=== PATIENT | female | born 1950 | race Caucasian/White ===

== ENCOUNTER 2016-05-05 02:32 | Inpatient (IN) | payer MEDICAID, MEDICARE ==
[2016-05-05] VITALS (15 sets, daily range): BP systolic 92–162; BP diastolic 29–119
[~2016-05-05] VITALS: Ht 144.8 cm; Wt 55.5 kg
[2016-05-05] MEDS ORDERED: SODIUM BICARBONATE 8.4% 50 MEQ/50 ML VIAL IV ONE (02:45)
[2016-05-05] MEDS ORDERED: IV NORMAL SALINE 500 ML BAG IV ONE (02:45)
[2016-05-05] MEDS ORDERED: IV NORMAL SALINE 1000 ML BAG IV ONE (03:00)
[2016-05-05] MEDS ORDERED: OMEG500C PO (03:02)
[2016-05-05] MEDS ORDERED: MVI WITH MINERALS PO (03:08)
[2016-05-05] MEDS ORDERED: SODIUM CHLORIDE PO (03:10)
[2016-05-05] MEDS ORDERED: HPN PO (03:13)
[2016-05-05] MEDS ORDERED: CRAN450T9 PO (03:16)
[2016-05-05] MEDS ORDERED: DOCU-25 PO (03:18)
[2016-05-05] MEDS ORDERED: FOLI1TAB16 PO (03:19)
[2016-05-05] MEDS ORDERED: VIT C PO (03:20)
[2016-05-05] MEDS ORDERED: FERR-58 PO (03:22)
[2016-05-05] MEDS ORDERED: LISI-607 PO (03:23)
[2016-05-05 03:24] LABS: BASOPHILS % (AUTO) 0.3 % (0.0-2.0); EOSINOPHILS # (AUTO) 0.1 K/uL (0.0-0.7); HEMATOCRIT 30.5 % (37.0-47.0); HEMOGLOBIN 9.3 g/dL (12.0-16.0); LYMPHOCYTES # (AUTO) 1.2 K/uL (0.8-4.8); LYMPHOCYTES % (AUTO) 9.5 % (20.5-51.5); MEAN CORPUSCULAR HEMOGLOBIN 27.4 uug (27.0-31.0); MEAN CORPUSCULAR HGB CONC 30 g/dL (32.0-37.0); MONOCYTES # (AUTO) 0.5 K/uL (0.1-1.30); NEUTROPHILS # (AUTO) 10.7 K/uL (1.8-8.9); NEUTROPHILS % (AUTO) 85.2 % (38.5-71.5); PLATELET COUNT (AUTO) 587 K/uL (150-450); RED BLOOD CELL COUNT(AUTO) 3.38 MIL/uL (4.20-5.40); RED CELL DISTRIBUTION WIDTH 14.1 % (11.5-14.5); WHITE BLOOD COUNT (AUTO) 12.5 K/uL (4.0-11.2)
[2016-05-05] MEDS ORDERED: MONT10TA22 PO (03:24)
[2016-05-05] MEDS ORDERED: CYCL5TAB PO (03:25)
[2016-05-05] MEDS ORDERED: IMMODIUM PO (03:26)
[2016-05-05] MEDS ORDERED: DIPH25CA83 PO (03:28)
[2016-05-05 03:37] LABS: ALBUMIN 2.9 g/dL (3.4-5.0); BILIRUBIN,DIRECT 0.2 mg/dL (0.0-0.2); BILIRUBIN,TOTAL 0.5 mg/dL (0.2-1.0); CALCIUM 10.3 mg/dL (8.5-10.1); TOTAL PROTEIN, SERUM 8.9 g/dL (6.4-8.2)
[2016-05-05 03:50] LABS: CREATININE 4.2 mg/dL (0.6-1.3); POTASSIUM 7.7 mmol/L (3.5-5.1)
[2016-05-05] MEDS ORDERED: SODIUM BICARBONATE 8.4% 50 MEQ/50 ML DISP.SYRIN IV ONE (04:03)
[2016-05-05] MEDS ORDERED: ACET-2154 PO (04:15)
[2016-05-05] MEDS ORDERED: MAGN400O4 PO (04:17)
[2016-05-05] MEDS ORDERED: BISA10SU12 RC (04:19)
[2016-05-05] MEDS ORDERED: NA P133E RC (04:21)
[2016-05-05] MEDS ORDERED: HYDR-548 PO ×2 (04:23→04:24)
[2016-05-05] MEDS ORDERED: MIRT15TA PO (04:26)
[2016-05-05] MEDS ORDERED: BUSP15TA3 PO (04:26)
[2016-05-05] MEDS ORDERED: INSULIN REGULAR, HUMAN 1,000 UNITS/10 ML VIAL IV ONE (04:30)
[2016-05-05] MEDS ORDERED: DEXTROSE 50% 50 ML DISP.SYRIN IV ONE (04:30)
[2016-05-05] MEDS ORDERED: ZINC57OI4 TP (04:30)
--- NOTE | 2016-05-05 04:34 | NUR ---
XRAY IN THE ROOM
[2016-05-05] MEDS ORDERED: CALCIUM GLUCONATE IV 1 GM in IV DEXTROSE 5% 50 ML IV ONE (04:45)
--- NOTE | 2016-05-05 04:47 | NUR ---
DR MEDINA SPOKE WITH DR WALDO GARNER VASCULAR SURGERY. WILL SEE PATIENT TODAY
[2016-05-05] MEDS ORDERED: CALCIUM GLUCONATE 1 GM/10 ML VIAL IV ONE (04:53)
[2016-05-05] MEDS ORDERED: DEXTROSE 50% 50 ML DISP.SYRIN ONE (04:54)
[2016-05-05] MEDS ORDERED: INSULIN REGULAR, HUMAN 300 UNIT/3 ML VIAL ONE (04:56)
--- NOTE | 2016-05-05 06:00 | NUR ---
Received patient from ER. 2L NC, slight hypotension, sinus tach on cardiac/vascular sonographer. Confused.
--- NOTE | 2016-05-05 06:30 | NUR ---
Called to [facility] Nephrology, awaiting admitting doctor's return call; Dr Tolliver
[2016-05-05] MEDS ORDERED: SODIUM POLYSTYRENE SULFONATE 15 G/60 ML LIQUID UDC PO ONE ×2 (07:00→07:15)
--- NOTE | 2016-05-05 07:00 | NUR ---
Dr. Tolliver returned call. Admitting orders received. Will endorse to day shift nurse
[2016-05-05 07:29] LABS: ABG BASE EXCESS -10.3 mmol/L; ABG HCO3 13.5 mmol/L; ABG PCO2 23.1 mmHg (35.0-45.0); ABG PH 7.383 (7.350-7.450); ABG PO2 142.7 mmHg (75.0-100.0); ABG SITE RIGHT RADIAL; ABG TOTAL HEMOGLOBIN 8.6 G/dL (12.0-16.0); MetHb 0.4 % (0.0-1.5); O2Hb 98.1 % (94.0-97.0); VENT MODE Nasal Cannula
[2016-05-05] MEDS ORDERED: FLEET ENEMA 133 ML BOTTLE RC PRN (07:45)
[2016-05-05] MEDS ORDERED: ACETAMINOPHEN 325 MG TABLET PO PRN (07:45)
[2016-05-05] MEDS ORDERED: BISACODYL 10 MG SUPP.RECT RC PRN (07:45)
[2016-05-05] MEDS ORDERED: LOPERAMIDE HCL 2 MG CAPSULE PO PRN (07:45)
[2016-05-05] MEDS ORDERED: diphenhydrAMINE 25 MG CAP PO PRN (07:45)
[2016-05-05] MEDS ORDERED: MAGNESIUM HYDROXIDE 30 ML LIQUID UDC PO PRN (07:45)
--- NOTE | 2016-05-05 08:10 | NUR ---
Spoke with Dr. Hernandez and stated that it was okay for the pt to have a PICC line.
--- NOTE | 2016-05-05 08:16 | NUR ---
Spoke with Allen PICC line RN and stated that he'll come by later this morning for PICC line insertion for the pt. [employer] made aware.
--- NOTE | 2016-05-05 08:25 | NUR ---
Consent for PICC line insertion and blood transfusion signed by So (granddaughter): . Granddaughter alert and oriented during our telephone conversation and is aware of the procedures to be done.
[2016-05-05] MEDS ORDERED: FUROSEMIDE 40 MG/4 ML VIAL IV ONE (08:30)
[2016-05-05] MEDS ORDERED: CYCLOBENZAPRINE HCL 10 MG TABLET PO SCH (09:00)
[2016-05-05] MEDS ORDERED: SODIUM CHLORIDE 1,000 MG TABLET PO SCH (09:00)
[2016-05-05] MEDS ORDERED: CRANBERRY FRUIT PO SCH (09:00)
--- NOTE | 2016-05-05 09:00 | NUR ---
good catheter inserted and purulent bloody and foul smelling urine obtained and sent to lab, Dr. Hernandez informed.
[2016-05-05] MEDS: SODIUM BICARBONATE 8.4% 50 MEQ in IV 1/2NS 1000 ML 1,000 ML IV PRN ×2 (09:14→18:03)
[2016-05-05] MEDS: CEFTRIAXONE 1 G in IV DEXTROSE 5% 50 ML IV SCH (09:15)
--- NOTE | 2016-05-05 09:15 | NUR ---
Dr. Hernandez in the unit to see patient, full report given.
[2016-05-05] MEDS: FERROUS SULFATE 325 MG TABEC PO SCH (09:20)
[2016-05-05] MEDS: OMEGA-3 FATTY ACIDS/FISH OIL CAPSULE PO SCH (09:20)
[2016-05-05] MEDS: DOCUSATE SODIUM 100 MG CAPSULE PO SCH (09:20)
[2016-05-05] MEDS: ASCORBIC ACID 500 MG TABLET PO SCH (09:21)
[2016-05-05] MEDS: FOLIC ACID 1 MG TABLET PO SCH (09:21)
[2016-05-05] MEDS: PANTOPRAZOLE SODIUM 40 MG VIAL IV SCH ×2 (09:21→21:00)
[2016-05-05] MEDS: MULTIVIT, IRON, MIN NO. 8, FA TABLET PO SCH (09:21)
[2016-05-05] MEDS: busPIRone 5 MG TABLET PO SCH ×3 (09:24→17:00)
[2016-05-05 10:03] LABS: *BILIRUBIN,URIN NEGATIVE (NEGATIVE); *BLOOD, URINE 3+ (NEGATIVE); *CLARITY,URINE TURBID (CLEAR); *COLOR,URINE ORANGE (YELLOW); *KETONES,URINE TRACE (NEGATIVE); *UROBILINOGEN,URINE 0.2 E.U./dl (NORMAL); LEUKOCYTE ESTERASE ,URINE 3+ (NEGATIVE); NITRITE, URINE NEGATIVE (NEGATIVE); PH,URINE 5.5 (5.0-8.0); UGLUCOSE NEGATIVE (NEGATIVE)
[2016-05-05 10:05] LABS: *PROTEIN,URINE 3+ (NEGATIVE)
[2016-05-05 10:12] LABS: BACTERIA,URINE MA /HPF (NONE SEEN); SQUAMOUS EPITHELIAL CELL,UR NONE SEEN /HPF (NONE SEEN)
[2016-05-05 10:15] LABS: RBC,URINE 20-50 /HPF (0-3)
[2016-05-05 10:16] LABS: WBC,URINE TNTC /HPF (0-3)
[2016-05-05] MEDS ORDERED: LIDOCAINE HCL 1% 20 ML VIAL IJ ONE (11:00)
--- NOTE | 2016-05-05 11:07 | NUR ---
Picc line insertion in process.
--- NOTE | 2016-05-05 11:35 | NUR ---
Picc line procedure done at this time as ordered by Brandon Hermosillo PICC line ready to be used. Addendum: 05/05/16 at 1136 by MARK LÓPEZ RN 2 tgs dafne DUONG
[2016-05-05 13:16] LABS: BASOPHILS % (AUTO) 0.1 % (0.0-2.0); EOSINOPHILS # (AUTO) 0.1 K/uL (0.0-0.7); EOSINOPHILS % (AUTO) 0.6 % (0.0-7.0); HEMOGLOBIN 7.9 g/dL (12.0-16.0); LYMPHOCYTES # (AUTO) 0.6 K/uL (0.8-4.8); LYMPHOCYTES % (AUTO) 6.4 % (20.5-51.5); MEAN CORPUSCULAR HEMOGLOBIN 28.6 uug (27.0-31.0); MEAN CORPUSCULAR HGB CONC 32 g/dL (32.0-37.0); MEAN CORPUSCULAR VOLUME 90.6 fL (81.0-99.0); MONOCYTES # (AUTO) 0.3 K/uL (0.1-1.30); NEUTROPHILS # (AUTO) 8.1 K/uL (1.8-8.9); NEUTROPHILS % (AUTO) 89.9 % (38.5-71.5); PLATELET COUNT (AUTO) 549 K/uL (150-450); RED BLOOD CELL COUNT(AUTO) 2.76 MIL/uL (4.20-5.40); RED CELL DISTRIBUTION WIDTH 14.4 % (11.5-14.5); WHITE BLOOD COUNT (AUTO) 9.1 K/uL (4.0-11.2)
[2016-05-05 13:28] LABS: CREATININE 3.6 mg/dL (0.6-1.3); MAGNESIUM 2.4 mg/dL (1.8-2.4); PHOSPHOROUS 5.6 mg/dL (2.5-4.9); POTASSIUM 4.7 mmol/L (3.5-5.1)
[2016-05-05] MEDS: MONTELUKAST SODIUM 10 MG TABLET PO SCH ×2 (17:11→17:41)
--- NOTE | 2016-05-05 17:42 | NUR ---
patient spit out her 1700 and 1800 meds. medication already crashed.
--- NOTE | 2016-05-05 20:00 | NUR ---
RECEIVED PT. OPENS HIS EYES TO VERBAL STIMULI, FOLLOWS TO COMMAND.ON RM AIR W/ O2 SAT OF 99%. IVF I/2 NS @ 125CC/HR VIA PICC LINE ON JOHN. KRUSE CATH INTACT DRAINING TO CLOUDY PINKISH URINE. HAD LARGE LIQUIDISH GRAYISH STOOL, CLEANED PT & COMPLETE LINEN CHANGED. REPOSITIONED ON HER SIDE W/ HOB ELEVATED.
[2016-05-05] MEDS: MIRTAZAPINE 15 MG TABLET PO SCH (21:00)
--- NOTE | 2016-05-05 22:00 | NUR ---
HS CARE DONE. NO BM NOTED THIS TIME. REPOSITIONED ON HER OPPOSITE SIDE W/ HOB ELEVATED. PT. SPITTED OUT MED. GIVEN PO EARLIER.
[2016-05-06] VITALS (77 sets, daily range): BP systolic 66–158; BP diastolic 25–105
[2016-05-06] MEDS: SODIUM BICARBONATE 8.4% 50 MEQ in IV 1/2NS 1000 ML 1,000 ML IV PRN ×3 (02:29→21:42)
[2016-05-06] MEDS: HYDROCODONE/APAP 10-325 MG TABLET PO PRN ×2 (03:24→16:42)
--- NOTE | 2016-05-06 03:25 | NUR ---
MEDICATED W/ NORCO10/325 1 TAB BEFORE DRSG CHANGED ON HER SACRUM.
--- NOTE | 2016-05-06 04:15 | NUR ---
AM CARE DONE. REFUSED ORAL CARE. NO BM NOTED THIS TIME. REPOSITIONED ON HER SIDE W/ HOB ELEVATED.
[2016-05-06 04:58] LABS: EOSINOPHILS # (AUTO) 0.2 K/uL (0.0-0.7); MONOCYTES # (AUTO) 0.4 K/uL (0.1-1.30); WHITE BLOOD COUNT (AUTO) 7.9 K/uL (4.0-11.2)
[2016-05-06 04:59] LABS: BASOPHILS % (AUTO) 0.1 % (0.0-2.0); EOSINOPHILS % (AUTO) 2.5 % (0.0-7.0); HEMATOCRIT 22.2 % (37.0-47.0); LYMPHOCYTES # (AUTO) 0.8 K/uL (0.8-4.8); LYMPHOCYTES % (AUTO) 9.7 % (20.5-51.5); MEAN CORPUSCULAR HEMOGLOBIN 29.4 uug (27.0-31.0); MEAN CORPUSCULAR HGB CONC 33 g/dL (32.0-37.0); MEAN CORPUSCULAR VOLUME 88.9 fL (81.0-99.0); MONOCYTES % (AUTO) 4.6 % (0.0-11.0); NEUTROPHILS # (AUTO) 6.5 K/uL (1.8-8.9); NEUTROPHILS % (AUTO) 83.1 % (38.5-71.5); PLATELET COUNT (AUTO) 504 K/uL (150-450); RED CELL DISTRIBUTION WIDTH 14.7 % (11.5-14.5)
[2016-05-06 05:14] LABS: HEMOGLOBIN 7.3 g/dL (12.0-16.0)
[2016-05-06 05:19] LABS: BILIRUBIN,TOTAL 0.5 mg/dL (0.2-1.0); CALCIUM 8.2 mg/dL (8.5-10.1); MAGNESIUM 1.8 mg/dL (1.8-2.4); POTASSIUM 3.1 mmol/L (3.5-5.1); TOTAL PROTEIN, SERUM 6.6 g/dL (6.4-8.2)
[2016-05-06 05:26] LABS: CREATININE 2.6 mg/dL (0.6-1.3)
--- NOTE | 2016-05-06 07:30 | NUR ---
Dr. Kidd in the unit to see patient report given see orders.
[2016-05-06] MEDS: NOREPINEPHRINE BITARTRATE 16 MG in IV DEXTROSE 5% 500 ML IV PRN (07:34)
[2016-05-06] MEDS ORDERED: SODIUM CHLORIDE 1,000 MG TABLET PO SCH (09:00)
[2016-05-06] MEDS: MULTIVIT, IRON, MIN NO. 8, FA TABLET PO SCH (09:01)
[2016-05-06] MEDS: PANTOPRAZOLE SODIUM 40 MG VIAL IV SCH ×2 (09:01→21:09)
[2016-05-06] MEDS: ASCORBIC ACID 500 MG TABLET PO SCH (09:01)
[2016-05-06] MEDS: CEFTRIAXONE 1 G in IV DEXTROSE 5% 50 ML IV SCH (09:01)
[2016-05-06] MEDS: DOCUSATE SODIUM 100 MG CAPSULE PO SCH (09:01)
[2016-05-06] MEDS: OMEGA-3 FATTY ACIDS/FISH OIL CAPSULE PO SCH (09:01)
[2016-05-06] MEDS: FOLIC ACID 1 MG TABLET PO SCH (09:01)
[2016-05-06] MEDS: FERROUS SULFATE 325 MG TABEC PO SCH (09:01)
[2016-05-06] MEDS: busPIRone 5 MG TABLET PO SCH ×3 (09:02→17:00)
--- NOTE | 2016-05-06 13:47 | NUR ---
WOUND CARE CONSULT: PT PRESENTS WITH IMMOBILITY AND SACRAL STAGE III ULCER WITH LARGE AREA OF SCARRING EXTENDING TO BUTTOCKS, PRESENT ON ADMISSION. RECOMMENDATIONS MADE FOR WOUND CARE AND SKIN PROTECTION. PT ON FIRST STEP MATTRESS. RECOMMEND SURGICAL CONSULT. PT TO BE TURNED AND REPOSITIONED EVERY 2 HRS PT CONDITION PERMITS, HEELS FLOATED. DUSKY COLOR TO PLANTAR FEET AND HEELS WITH BLANCHING REDNESS. WILL SEE PRN. ZHANG IN AGREEMENT WITH PLAN OF CARE. Addendum: 05/06/16 at 1349 by AILYN HUBER RN Amended: Links added. Addendum: 05/06/16 at 1353 by AILYN HUBER RN PT IS CACHECTIC. DIETARY CONSULT ORDERED.
[2016-05-06] MEDS ORDERED: LEVOFLOXACIN 250MG /D5W 250 MG in PREMIXED 1 EACH IV SCH ×2 (14:15→15:00)
[2016-05-06] MEDS: PIPERACILLIN/TAZOBACTAM/D5W 2.25 G in PREMIXED 1 EACH IV SCH ×2 (15:00→22:23)
[2016-05-06] MEDS: LEVOFLOXACIN 250MG /D5W 250 MG in PREMIXED 1 EACH IV SCH (15:48)
--- NOTE | 2016-05-06 17:07 | NUR ---
patient screaming for pain medication, noted to be grimacing and restless. medication removed scanned and when crashed and mixed with apple sauce patient refusing and closing lip tightly. Patient extremely confused. medication wasted.
[2016-05-06] MEDS: MONTELUKAST SODIUM 10 MG TABLET PO SCH (17:11)
--- NOTE | 2016-05-06 20:00 | NUR ---
RECEIVED PT. AWAKE, CONFUSED & DISORIENTED. ON RM AIR W/ O2 SAT OF 99%. IVF1/2 NS W/ 1 AMP OF NA BICAB @ 125CC/HR VIA PICC LINE ON JOHN. ON LEVOPHED DRIP @ 10MCQ/MIN. REPOSITIONED ON HER SIDE W/ HOB ELEVATED. NOT IN ANY DISTRESS.
[2016-05-06] MEDS: MIRTAZAPINE 15 MG TABLET PO SCH (21:09)
--- NOTE | 2016-05-06 22:00 | NUR ---
HS CARE DONE REPOSITIONED W/ HOB ELEVATED.
[2016-05-07] VITALS (46 sets, daily range): BP systolic 103–155; BP diastolic 47–92
--- NOTE | 2016-05-07 | NUR ---
REMAINS ON LEVOPHED DRIP @ 8MCQ/MIN. AFEBRILE.
[2016-05-07] MEDS: HYDROCODONE/APAP 10-325 MG TABLET PO PRN ×2 (03:20→09:13)
--- NOTE | 2016-05-07 04:30 | NUR ---
AM CARE DONE .ORAL CARE DONE. NO BM NOTED. REPOSITIONED W/ HOB ELEVATED.
[2016-05-07 05:15] LABS: ALBUMIN 1.9 g/dL (3.4-5.0); BILIRUBIN,TOTAL 1.2 mg/dL (0.2-1.0); CALCIUM 7.8 mg/dL (8.5-10.1); MAGNESIUM 1.5 mg/dL (1.8-2.4); PHOSPHOROUS 3.4 mg/dL (2.5-4.9); TOTAL PROTEIN, SERUM 6.4 g/dL (6.4-8.2)
[2016-05-07 05:18] LABS: BASOPHILS % (AUTO) 0.2 % (0.0-2.0); EOSINOPHILS % (AUTO) 0.2 % (0.0-7.0); HEMATOCRIT 35.3 % (37.0-47.0); LYMPHOCYTES # (AUTO) 1.3 K/uL (0.8-4.8); LYMPHOCYTES % (AUTO) 8.4 % (20.5-51.5); MEAN CORPUSCULAR HGB CONC 33 g/dL (32.0-37.0); MEAN CORPUSCULAR VOLUME 86.9 fL (81.0-99.0); MONOCYTES # (AUTO) 0.7 K/uL (0.1-1.30); MONOCYTES % (AUTO) 4.9 % (0.0-11.0); NEUTROPHILS # (AUTO) 13.2 K/uL (1.8-8.9); NEUTROPHILS % (AUTO) 86.3 % (38.5-71.5); PLATELET COUNT (AUTO) 415 K/uL (150-450); RED BLOOD CELL COUNT(AUTO) 4.06 MIL/uL (4.20-5.40); RED CELL DISTRIBUTION WIDTH 16.4 % (11.5-14.5); WHITE BLOOD COUNT (AUTO) 15.2 K/uL (4.0-11.2)
[2016-05-07 05:22] LABS: HEMOGLOBIN 11.8 g/dL (12.0-16.0)
[2016-05-07 05:33] LABS: CREATININE 1.9 mg/dL (0.6-1.3); POTASSIUM 2.6 mmol/L (3.5-5.1)
--- NOTE | 2016-05-07 06:00 | NUR ---
DR GIBBS CALLED FOR K+LEVEL-2.6 W/ ORDER.
[2016-05-07] MEDS: PIPERACILLIN/TAZOBACTAM/D5W 2.25 G in PREMIXED 1 EACH IV SCH ×3 (06:04→23:04)
[2016-05-07] MEDS ORDERED: POTASSIUM CHLORIDE 100 ML IV SCH (06:15)
[2016-05-07] MEDS ORDERED: POTASSIUM CHLORIDE 50 ML ONE (06:24)
[2016-05-07] MEDS: POTASSIUM CHLORIDE 50 ML IV SCH ×3 (07:15→09:05)
[2016-05-07] MEDS: SODIUM BICARBONATE 8.4% 50 MEQ in IV 1/2NS 1000 ML 1,000 ML IV PRN (07:39)
[2016-05-07] MEDS: NOREPINEPHRINE BITARTRATE 16 MG in IV DEXTROSE 5% 500 ML IV PRN (07:41)
[2016-05-07] MEDS: MULTIVIT, IRON, MIN NO. 8, FA TABLET PO SCH (08:07)
[2016-05-07] MEDS: PANTOPRAZOLE SODIUM 40 MG VIAL IV SCH ×2 (08:07→20:52)
[2016-05-07] MEDS: FERROUS SULFATE 325 MG TABEC PO SCH (08:07)
[2016-05-07] MEDS: OMEGA-3 FATTY ACIDS/FISH OIL CAPSULE PO SCH (08:08)
[2016-05-07] MEDS: busPIRone 5 MG TABLET PO SCH ×2 (08:08→17:00)
[2016-05-07] MEDS: FOLIC ACID 1 MG TABLET PO SCH (08:08)
[2016-05-07] MEDS: ASCORBIC ACID 500 MG TABLET PO SCH (08:08)
[2016-05-07] MEDS: DOCUSATE SODIUM 100 MG CAPSULE PO SCH (08:08)
--- NOTE | 2016-05-07 09:05 | NUR ---
DOCTOR AGUILERA IN UNIT EVALUATING PATIENTS. ORDERS PLACED AND EXPEDITED.
[2016-05-07] MEDS ORDERED: MAGNESIUM SULFATE/D5W 100 ML IV SCH (09:15)
[2016-05-07] MEDS: POTASSIUM CHLORIDE 10 MEQ in IV 1/2NS 1000 ML 1,000 ML IV PRN (09:26)
--- NOTE | 2016-05-07 11:30 | NUR ---
dr. davenport CT SCAN SPECIAL PROCEDURES TECHNOLOGIST came to see patient. new ordered place for mrsa nares
[2016-05-07] MEDS: MUPIROCIN 2% OINT 22 GM TUBE NS SCH ×2 (13:22→20:53)
--- NOTE | 2016-05-07 14:10 | NUR ---
patient does not want to take any po intake. unable to insert NGT.
--- NOTE | 2016-05-07 16:00 | NUR ---
patient taken to CT scan for abdomen and pelvis no contrast.
--- NOTE | 2016-05-07 16:35 | NUR ---
spoke to doctor shtorch regarding patient refusing to eat or take meds for several days. doctor to consult GI for possible peg. attempted ngt unable to place.
[2016-05-07] MEDS: MONTELUKAST SODIUM 10 MG TABLET PO SCH (18:00)
--- NOTE | 2016-05-07 20:00 | NUR ---
RECEIVED PT.AWAKE, VERBALLY RESPONSIVE BUT CONFUSED & DISORIENTED. ON RM AIR W/ O2 SAT OF 98%. IVF 1/2NS W/ 10MEQ KCL @ 75CC/HR VIA PICC LINE ON JOHN. KRUSE CATH IN PLACE DRAINING TO CLOUDY ANGY URINE. AFEBRILE. REPOSITIONED ON HER SIDE W/ HOB ELEVATED.
[2016-05-07] MEDS: LACTOBACILLUS RHAMNOSUS GG 1 EACH CAPSULE PO SCH (20:52)
[2016-05-07] MEDS: MIRTAZAPINE 15 MG TABLET PO SCH (20:53)
--- NOTE | 2016-05-07 22:00 | NUR ---
HS CARE DONE. ORAL CARE DONE. REPOSITIONED ON HER SIDE W/ HOB ELEVATED. BP STABLE.
[2016-05-08] VITALS (23 sets, daily range): BP systolic 94–155; BP diastolic 40–95
--- NOTE | 2016-05-08 | NUR ---
AFEBRILE. BP STABLE. NOT IN ANY DISTRESS.
[2016-05-08] MEDS: POTASSIUM CHLORIDE 10 MEQ in IV 1/2NS 1000 ML 1,000 ML IV PRN ×2 (00:42→20:12)
--- NOTE | 2016-05-08 04:30 | NUR ---
AM CARE DONE. ORAL CARE DONE. NO BM NOTED. REPOSITIONED ON HER SIDE W/ HOB ELEVATED.
--- NOTE | 2016-05-08 05:00 | NUR ---
CLEANED SACRUM OPEN AREAS , HYDROGEL OINTMENT APPLIED & COVERED W/ MEPILEX DRSG. Z-GUARD CREAM APPLIED TO PERIANAL AREA.
[2016-05-08] MEDS: HYDROCODONE/APAP 10-325 MG TABLET PO PRN (05:33)
[2016-05-08] MEDS: PIPERACILLIN/TAZOBACTAM/D5W 2.25 G in PREMIXED 1 EACH IV SCH (05:33)
[2016-05-08 05:56] LABS: BASOPHILS % (AUTO) 0.1 % (0.0-2.0); EOSINOPHILS # (AUTO) 0.1 K/uL (0.0-0.7); EOSINOPHILS % (AUTO) 0.5 % (0.0-7.0); HEMATOCRIT 34.8 % (37.0-47.0); HEMOGLOBIN 11.7 g/dL (12.0-16.0); LYMPHOCYTES # (AUTO) 1.6 K/uL (0.8-4.8); LYMPHOCYTES % (AUTO) 12.6 % (20.5-51.5); MEAN CORPUSCULAR HEMOGLOBIN 29.6 uug (27.0-31.0); MEAN CORPUSCULAR HGB CONC 34 g/dL (32.0-37.0); MEAN CORPUSCULAR VOLUME 88.2 fL (81.0-99.0); MONOCYTES # (AUTO) 0.9 K/uL (0.1-1.30); MONOCYTES % (AUTO) 7.4 % (0.0-11.0); NEUTROPHILS % (AUTO) 79.4 % (38.5-71.5); PLATELET COUNT (AUTO) 299 K/uL (150-450); RED BLOOD CELL COUNT(AUTO) 3.95 MIL/uL (4.20-5.40); RED CELL DISTRIBUTION WIDTH 17.1 % (11.5-14.5); WHITE BLOOD COUNT (AUTO) 12.6 K/uL (4.0-11.2)
--- NOTE | 2016-05-08 06:00 | NUR ---
AWAKE & CONFUSED. REPOSITIONED ON HER SIDE W/ HOB ELEVATED.
[2016-05-08] MEDS ORDERED: POTASSIUM CHLORIDE 50 ML IV SCH ×2 (07:15→07:45)
[2016-05-08 07:18] LABS: BILIRUBIN,TOTAL 0.7 mg/dL (0.2-1.0); CALCIUM 8.4 mg/dL (8.5-10.1); CREATININE 1.6 mg/dL (0.6-1.3); MAGNESIUM 1.9 mg/dL (1.8-2.4); PHOSPHOROUS 3.2 mg/dL (2.5-4.9); POTASSIUM 3.4 mmol/L (3.5-5.1); TOTAL PROTEIN, SERUM 6.5 g/dL (6.4-8.2)
--- NOTE | 2016-05-08 08:00 | NUR ---
DOCTOR SHTORCH IN THE UNIT ROUNDING ON PATIENT. RESULTS FROM CT WERE READ. ORDERED HIDA SCAN FOR PATIENT.
[2016-05-08] MEDS: busPIRone 5 MG TABLET PO SCH ×2 (08:14→16:53)
[2016-05-08] MEDS: PANTOPRAZOLE SODIUM 40 MG VIAL IV SCH ×2 (08:14→21:21)
[2016-05-08] MEDS: MUPIROCIN 2% OINT 22 GM TUBE NS SCH ×2 (08:15→21:21)
[2016-05-08] MEDS: MULTIVIT, IRON, MIN NO. 8, FA TABLET PO SCH (09:00)
[2016-05-08] MEDS: ASCORBIC ACID 500 MG TABLET PO SCH (09:00)
[2016-05-08] MEDS: DOCUSATE SODIUM 100 MG CAPSULE PO SCH (09:00)
[2016-05-08] MEDS: LACTOBACILLUS RHAMNOSUS GG 1 EACH CAPSULE PO SCH ×2 (09:00→21:20)
[2016-05-08] MEDS: OMEGA-3 FATTY ACIDS/FISH OIL CAPSULE PO SCH (09:00)
[2016-05-08] MEDS: FERROUS SULFATE 325 MG TABEC PO SCH (09:00)
[2016-05-08] MEDS: FOLIC ACID 1 MG TABLET PO SCH (09:00)
--- NOTE | 2016-05-08 09:45 | NUR ---
DOCTOR EVELIO IN UNIT ROUNDING ON PATIENT. CHANGED ANTIBIOTICS.
--- NOTE | 2016-05-08 11:07 | NUR ---
PATIENT TAKEN TO HIDA SCAN. CONSENT SIGNED. PATIENT MONITORED WITH RESOURCE NURSE.
--- NOTE | 2016-05-08 12:34 | NUR ---
CALLED DOCTOR DUTTA WHO IS ONCALL. FOR PRN PAIN MEDICATION IV. PATIENT NOT TOLERATING PO AND IS NPO FOR PROCEDURE
[2016-05-08] MEDS: HYDROMORPHONE 1 MG/1 ML DISP.SYRIN IV PRN ×2 (14:46→21:22)
[2016-05-08] MEDS: LEVOFLOXACIN 250MG /D5W 250 MG in PREMIXED 1 EACH IV SCH (16:53)
[2016-05-08] MEDS: MONTELUKAST SODIUM 10 MG TABLET PO SCH (18:00)
--- NOTE | 2016-05-08 20:00 | NUR ---
Alert, confused. Safety measures observed. In no apparent acute distress. Remains off vasopressor and is hemodynamically stable. Resp easy and regular. Excellent sats on room air. IVF infusing via PICC RUE. Vazquez cloudy urine, adequate amount. Nursing comfort measures maintained at all times. Please see CCU flowsheet for trends and clinical data. On contact isolation for MRSA nares.
[2016-05-08] MEDS: Z GUARD REMEDY PASTE 57 GM TUBE TOP PRN (20:13)
[2016-05-08] MEDS: MIRTAZAPINE 15 MG TABLET PO SCH (21:21)
[2016-05-09] VITALS (11 sets, daily range): BP systolic 103–140; BP diastolic 60–97
[2016-05-09 05:13] LABS: BASOPHILS % (AUTO) 0.2 % (0.0-2.0); EOSINOPHILS # (AUTO) 0.2 K/uL (0.0-0.7); EOSINOPHILS % (AUTO) 1.4 % (0.0-7.0); HEMATOCRIT 32.9 % (37.0-47.0); HEMOGLOBIN 10.9 g/dL (12.0-16.0); LYMPHOCYTES # (AUTO) 1.7 K/uL (0.8-4.8); LYMPHOCYTES % (AUTO) 14.8 % (20.5-51.5); MEAN CORPUSCULAR HEMOGLOBIN 29.3 uug (27.0-31.0); MEAN CORPUSCULAR HGB CONC 33 g/dL (32.0-37.0); MEAN CORPUSCULAR VOLUME 88.7 fL (81.0-99.0); MONOCYTES # (AUTO) 0.9 K/uL (0.1-1.30); MONOCYTES % (AUTO) 7.4 % (0.0-11.0); NEUTROPHILS # (AUTO) 8.7 K/uL (1.8-8.9); NEUTROPHILS % (AUTO) 76.2 % (38.5-71.5); PLATELET COUNT (AUTO) 261 K/uL (150-450); RED BLOOD CELL COUNT(AUTO) 3.71 MIL/uL (4.20-5.40); RED CELL DISTRIBUTION WIDTH 17.3 % (11.5-14.5); WHITE BLOOD COUNT (AUTO) 11.5 K/uL (4.0-11.2)
[2016-05-09 05:18] LABS: BILIRUBIN,TOTAL 0.6 mg/dL (0.2-1.0); CALCIUM 8.7 mg/dL (8.5-10.1); MAGNESIUM 1.6 mg/dL (1.8-2.4); PHOSPHOROUS 2.6 mg/dL (2.5-4.9); POTASSIUM 3.3 mmol/L (3.5-5.1); TOTAL PROTEIN, SERUM 6.1 g/dL (6.4-8.2)
[2016-05-09] MEDS: HYDROMORPHONE 1 MG/1 ML DISP.SYRIN IV PRN (05:25)
[2016-05-09] MEDS: Z GUARD REMEDY PASTE 57 GM TUBE TOP PRN (05:25)
[2016-05-09 05:52] LABS: CREATININE 1.4 mg/dL (0.6-1.3)
--- NOTE | 2016-05-09 06:00 | NUR ---
Pt sensitive to tactile stimuli, is guarded and appears in pain with turning/positioning. Medicated twice this shift with IV Dilaudid, with adequate relief. HR up as high as 130's with pain/discomfort. Fairly tolerated AM care procedures. Stable night. Please see CCU flowsheet for trends and clinical data.
[2016-05-09] MEDS: PANTOPRAZOLE SODIUM 40 MG VIAL IV SCH ×2 (08:31→20:48)
[2016-05-09] MEDS: MUPIROCIN 2% OINT 22 GM TUBE NS SCH ×2 (08:32→20:48)
[2016-05-09] MEDS: LACTOBACILLUS RHAMNOSUS GG 1 EACH CAPSULE PO SCH ×2 (08:37→20:48)
[2016-05-09] MEDS: OMEGA-3 FATTY ACIDS/FISH OIL CAPSULE PO SCH (08:37)
[2016-05-09] MEDS: FERROUS SULFATE 325 MG TABEC PO SCH (08:37)
[2016-05-09] MEDS: FOLIC ACID 1 MG TABLET PO SCH (08:38)
[2016-05-09] MEDS: ASCORBIC ACID 500 MG TABLET PO SCH (08:38)
[2016-05-09] MEDS: MULTIVIT, IRON, MIN NO. 8, FA TABLET PO SCH (08:38)
[2016-05-09] MEDS: busPIRone 5 MG TABLET PO SCH ×2 (08:39→17:00)
[2016-05-09] MEDS: DOCUSATE SODIUM 100 MG CAPSULE PO SCH (09:00)
[2016-05-09] MEDS: POTASSIUM CHLORIDE 10 MEQ in IV 1/2NS 1000 ML 1,000 ML IV PRN (09:09)
--- NOTE | 2016-05-09 10:12 | NUR ---
Dr. Hernandez here to see pt. Full report given. New orders received and carried out. stated that it was okay to downgrade pt to medsurg status. Addendum: 05/09/16 at 1133 by JOSUE ECHEVERRIA RN Pt remain NPO for now until GI/surgeon consults pt for acute cholecystitis.
[2016-05-09] MEDS ORDERED: MAGNESIUM SULFATE/D5W 100 ML IV SCH (10:15)
[2016-05-09] MEDS: POTASSIUM CHLORIDE 50 ML IV SCH ×2 (11:33→12:43)
[2016-05-09] MEDS: MONTELUKAST SODIUM 10 MG TABLET PO SCH (17:19)
--- NOTE | 2016-05-09 19:18 | NUR ---
Pt brought up to the 2nd floor with certified retinal angiographer RN and respiratory therapist. All belongings reviewed and returned to the pt. Pt stable and nad noted upon leaving the unit.
--- NOTE | 2016-05-09 19:30 | NUR ---
pt transferred from CCU,A/OX1 with confusion noted, not in acute distress, with good cath intact, PICC line on Right UA, calllight placed within reach.
--- NOTE | 2016-05-09 19:45 | NUR ---
Full SBAR report given to BETH Sandoval at the bedside.
[2016-05-09] MEDS: MIRTAZAPINE 15 MG TABLET PO SCH (20:48)
[2016-05-09] MEDS: LEVOFLOXACIN 250MG /D5W 250 MG in PREMIXED 1 EACH IV SCH (20:49)
[2016-05-10] MEDS: POTASSIUM CHLORIDE 10 MEQ in IV 1/2NS 1000 ML 1,000 ML IV PRN ×2 (03:44→19:41)
[2016-05-10 04:00] VITALS: BP 134/56
--- NOTE | 2016-05-10 06:35 | NUR ---
pt no change in condition, not in acute distress, IVF infusing well, kept comfortable,needs attended.
[2016-05-10 07:07] LABS: ALBUMIN 1.9 g/dL (3.4-5.0); BILIRUBIN,TOTAL 0.6 mg/dL (0.2-1.0); CALCIUM 8.8 mg/dL (8.5-10.1); CREATININE 1.2 mg/dL (0.6-1.3); MAGNESIUM 1.7 mg/dL (1.8-2.4); PHOSPHOROUS 2.6 mg/dL (2.5-4.9); POTASSIUM 3.8 mmol/L (3.5-5.1); TOTAL PROTEIN, SERUM 6.1 g/dL (6.4-8.2)
[2016-05-10 07:59] LABS: BASOPHILS % (AUTO) 0.3 % (0.0-2.0); EOSINOPHILS # (AUTO) 0.2 K/uL (0.0-0.7); EOSINOPHILS % (AUTO) 1.7 % (0.0-7.0); HEMATOCRIT 31.1 % (37.0-47.0); HEMOGLOBIN 10.3 g/dL (12.0-16.0); LYMPHOCYTES # (AUTO) 1.7 K/uL (0.8-4.8); LYMPHOCYTES % (AUTO) 15.8 % (20.5-51.5); MEAN CORPUSCULAR HEMOGLOBIN 29.3 uug (27.0-31.0); MEAN CORPUSCULAR HGB CONC 33 g/dL (32.0-37.0); MEAN CORPUSCULAR VOLUME 88.3 fL (81.0-99.0); MONOCYTES # (AUTO) 0.8 K/uL (0.1-1.30); NEUTROPHILS # (AUTO) 8.3 K/uL (1.8-8.9); NEUTROPHILS % (AUTO) 75.2 % (38.5-71.5); PLATELET COUNT (AUTO) 235 K/uL (150-450); RED BLOOD CELL COUNT(AUTO) 3.52 MIL/uL (4.20-5.40); RED CELL DISTRIBUTION WIDTH 16.4 % (11.5-14.5)
[2016-05-10] MEDS: OMEGA-3 FATTY ACIDS/FISH OIL CAPSULE PO SCH (08:02)
[2016-05-10] MEDS: DOCUSATE SODIUM 100 MG CAPSULE PO SCH (08:02)
[2016-05-10] MEDS: MULTIVIT, IRON, MIN NO. 8, FA TABLET PO SCH (08:03)
[2016-05-10] MEDS: FERROUS SULFATE 325 MG TABEC PO SCH (08:03)
[2016-05-10] MEDS: busPIRone 5 MG TABLET PO SCH ×2 (08:03→16:15)
[2016-05-10] MEDS: MUPIROCIN 2% OINT 22 GM TUBE NS SCH ×2 (08:03→20:44)
[2016-05-10] MEDS: FOLIC ACID 1 MG TABLET PO SCH (08:03)
[2016-05-10] MEDS: ASCORBIC ACID 500 MG TABLET PO SCH (08:03)
[2016-05-10] MEDS: LACTOBACILLUS RHAMNOSUS GG 1 EACH CAPSULE PO SCH ×2 (08:03→20:40)
[2016-05-10] MEDS: PANTOPRAZOLE SODIUM 40 MG VIAL IV SCH (08:04)
[2016-05-10 11:42] VITALS: BP 98/66
[2016-05-10] MEDS ORDERED: MAGNESIUM SULFATE/D5W 100 ML IV SCH (11:45)
[2016-05-10 15:25] VITALS: BP 108/67
[2016-05-10] MEDS: MONTELUKAST SODIUM 10 MG TABLET PO SCH (17:01)
[2016-05-10 20:00] VITALS: BP 124/61
[2016-05-10] MEDS: LEVOFLOXACIN 250MG /D5W 250 MG in PREMIXED 1 EACH IV SCH (20:40)
[2016-05-10] MEDS: MIRTAZAPINE 15 MG TABLET PO SCH (20:40)
[2016-05-10] MEDS: PANTOPRAZOLE ORAL SUSPENSION 40 MG SUSPDR.PKT PO SCH (20:40)
[2016-05-11 05:07] VITALS: BP 112/59
--- NOTE | 2016-05-11 06:14 | NUR ---
PT IN BED, A/O X2 WITH CONFUSION. IN NO ACUTE DISTRESS. IVF INFUSING ORDERED. TURNED AND REPOSITIONED. KRUSE INTACT. SAFETY MEASURES RENDERED. CONTINUED TO MONITOR.
[2016-05-11 06:56] LABS: ALBUMIN 1.6 g/dL (3.4-5.0); BILIRUBIN,TOTAL 0.5 mg/dL (0.2-1.0); CALCIUM 7.3 mg/dL (8.5-10.1); CREATININE 0.9 mg/dL (0.6-1.3); MAGNESIUM 1.4 mg/dL (1.8-2.4); PHOSPHOROUS 2.4 mg/dL (2.5-4.9); POTASSIUM 4.8 mmol/L (3.5-5.1); TOTAL PROTEIN, SERUM 5.2 g/dL (6.4-8.2)
[2016-05-11] MEDS ORDERED: PANTOPRAZOLE ORAL SUSPENSION 40 MG SUSPDR.PKT PO SCH (07:00)
[2016-05-11 07:24] LABS: BASOPHILS % (AUTO) 0.1 % (0.0-2.0); EOSINOPHILS # (AUTO) 0.1 K/uL (0.0-0.7); EOSINOPHILS % (AUTO) 1.4 % (0.0-7.0); HEMOGLOBIN 10.2 g/dL (12.0-16.0); LYMPHOCYTES # (AUTO) 1.3 K/uL (0.8-4.8); LYMPHOCYTES % (AUTO) 13.3 % (20.5-51.5); MEAN CORPUSCULAR HEMOGLOBIN 29.9 uug (27.0-31.0); MEAN CORPUSCULAR HGB CONC 33 g/dL (32.0-37.0); MEAN CORPUSCULAR VOLUME 90.7 fL (81.0-99.0); MONOCYTES # (AUTO) 0.6 K/uL (0.1-1.30); MONOCYTES % (AUTO) 6.4 % (0.0-11.0); NEUTROPHILS # (AUTO) 7.6 K/uL (1.8-8.9); NEUTROPHILS % (AUTO) 78.8 % (38.5-71.5); PLATELET COUNT (AUTO) 210 K/uL (150-450); RED BLOOD CELL COUNT(AUTO) 3.42 MIL/uL (4.20-5.40); RED CELL DISTRIBUTION WIDTH 17.5 % (11.5-14.5); WHITE BLOOD COUNT (AUTO) 9.6 K/uL (4.0-11.2)
--- NOTE | 2016-05-11 08:16 | NUR ---
PATIENT IS ALERT TO SELF WITH CONFUSSION AND DISORIENTATION ALL NEEDS ANTICIPATED AND SATISFIED.TOTALLY DEPENDENT ON NURSES FOR ALL ADL REMAIN NPO ORDERED WITH IVF ORDERED MADE COMFORTABLE NOT IN DISTRESS AT THIS TIME.
[2016-05-11] MEDS: MUPIROCIN 2% OINT 22 GM TUBE NS SCH ×2 (08:49→21:00)
[2016-05-11] MEDS: POTASSIUM CHLORIDE 10 MEQ in IV 1/2NS 1000 ML 1,000 ML IV PRN ×2 (08:51→22:44)
[2016-05-11] MEDS: FOLIC ACID 1 MG TABLET PO SCH (09:00)
[2016-05-11] MEDS: MULTIVIT, IRON, MIN NO. 8, FA TABLET PO SCH (09:00)
[2016-05-11] MEDS: ASCORBIC ACID 500 MG TABLET PO SCH (09:00)
[2016-05-11] MEDS: PANTOPRAZOLE ORAL SUSPENSION 40 MG SUSPDR.PKT PO SCH ×2 (09:00→22:37)
[2016-05-11] MEDS: busPIRone 5 MG TABLET PO SCH ×2 (09:00→17:00)
[2016-05-11] MEDS: FERROUS SULFATE 325 MG TABEC PO SCH (09:00)
[2016-05-11] MEDS: OMEGA-3 FATTY ACIDS/FISH OIL CAPSULE PO SCH (09:00)
[2016-05-11] MEDS: DOCUSATE SODIUM 100 MG CAPSULE PO SCH (09:00)
[2016-05-11] MEDS: LACTOBACILLUS RHAMNOSUS GG 1 EACH CAPSULE PO SCH ×2 (09:00→22:32)
[2016-05-11 10:46] LABS: ANISOCYTOSIS 1+
[2016-05-11 11:53] VITALS: BP 94/64
[2016-05-11] MEDS ORDERED: MAGNESIUM SULFATE/D5W 100 ML IV SCH (12:15)
[2016-05-11] MEDS ORDERED: SODIUM PHOSPHATE MM 5 MM in IV DEXTROSE 5% 100 ML IV ONE (12:15)
--- NOTE | 2016-05-11 12:50 | NUR ---
DR BARNES HERE TO SEE PATIENT WITH NEW ORDERS MD AWARE THAT PATIENT IS ON NPO EXCEPT MEDICATIONS BUT IS REFUSING MEDICATIONS STATED OKAY.DR ELLER INFECTIOUS DISEASE ALSO HERE WITH NO NEW ORDERS AT THIS TIME
[2016-05-11 15:27] VITALS: BP 132/73
[2016-05-11] MEDS: MONTELUKAST SODIUM 10 MG TABLET PO SCH (17:09)
--- NOTE | 2016-05-11 17:10 | NUR ---
ALL EFFORTS TO GIVE PATIENT MEDICATIONS FAILED WILL REFUSE TO OPEN MOUTH AND EVEN AFTER I MANAGED TO PUT THE MEDICATION INOT HER MOUTH,SHE SPIT IT OUT.
--- NOTE | 2016-05-11 19:02 | NUR ---
RESTING IN BED ALERT TO SELF ANSWERS YES ONLY UNABLE TO CARRY ON ANY CONVERATIONS AT THIS TIME.
[2016-05-11 20:00] VITALS: BP 136/69
[2016-05-11] MEDS ORDERED: D5W 500 MG IV SCH (21:00)
[2016-05-11] MEDS ORDERED: PREMIXED IV SCH (21:00)
[2016-05-11] MEDS ORDERED: LEVOFLOXACIN 500 MG/D5W 500 MG in PREMIXED 1 EACH IV SCH (21:00)
[2016-05-11] MEDS ORDERED: LEVOFLOXACIN IV SCH (21:00)
[2016-05-11] MEDS: MIRTAZAPINE 15 MG TABLET PO SCH (22:37)
[2016-05-11] MEDS: Z GUARD REMEDY PASTE 57 GM TUBE TOP PRN (22:46)
[2016-05-11] MEDS ORDERED: LEVOFLOXACIN 500 MG/D5W 100 ML ONE (23:03)
[2016-05-12] MEDS: POTASSIUM CHLORIDE 10 MEQ in IV 1/2NS 1000 ML 1,000 ML IV PRN ×2 (04:02→10:13)
[2016-05-12 05:13] VITALS: BP 116/76
--- NOTE | 2016-05-12 07:02 | NUR ---
pt no change in condition, managed to give meds with apple sauce,pt is confused. Pt not in acute distress, IVF infusing well, kept comfortable,needs attended.
--- NOTE | 2016-05-12 08:05 | NUR ---
RECEIVED PATIENT IN BED AWAKE ALERT TO SELF ONLY MUMBLING TO SELF INCOHERENTLY,ALL NEEDS ANTICIPATED AND SATISFIED ON FIRST STEP MATTRASS FOR DECUBITUS MANAGEMENT WITH TREATMENT IN PROGRESS ORDERED PATIENT IS SEEN AND EXAMINED BY DR BARNES WITH NEW ORDERS AND NOTED
--- NOTE | 2016-05-12 09:00 | NUR ---
I WAS ABLE TO GIVE PATIENT HER MEDICATIONS BUT SHE IS REFUSING TO EAT DRANK SOME OF HER JUICE AT THIS TIME AND WILL OBSERVE
[2016-05-12] MEDS: FERROUS SULFATE 325 MG TABEC PO SCH (09:02)
[2016-05-12] MEDS: DOCUSATE SODIUM 100 MG CAPSULE PO SCH (09:02)
[2016-05-12] MEDS: busPIRone 5 MG TABLET PO SCH ×2 (09:03→17:09)
[2016-05-12] MEDS: LACTOBACILLUS RHAMNOSUS GG 1 EACH CAPSULE PO SCH ×2 (09:03→20:11)
[2016-05-12] MEDS: OMEGA-3 FATTY ACIDS/FISH OIL CAPSULE PO SCH (09:03)
[2016-05-12] MEDS: MULTIVIT, IRON, MIN NO. 8, FA TABLET PO SCH (09:04)
[2016-05-12] MEDS: PANTOPRAZOLE ORAL SUSPENSION 40 MG SUSPDR.PKT PO SCH ×2 (09:04→20:12)
[2016-05-12] MEDS: FOLIC ACID 1 MG TABLET PO SCH (09:04)
[2016-05-12] MEDS: ASCORBIC ACID 500 MG TABLET PO SCH (09:04)
[2016-05-12] MEDS: MUPIROCIN 2% OINT 22 GM TUBE NS SCH ×2 (09:32→20:12)
[2016-05-12 10:13] LABS: ALBUMIN 1.8 g/dL (3.4-5.0); BILIRUBIN,TOTAL 0.5 mg/dL (0.2-1.0); CALCIUM 8.4 mg/dL (8.5-10.1); MAGNESIUM 1.6 mg/dL (1.8-2.4); PHOSPHOROUS 2.8 mg/dL (2.5-4.9); POTASSIUM 3.6 mmol/L (3.5-5.1); TOTAL PROTEIN, SERUM 5.9 g/dL (6.4-8.2)
[2016-05-12 10:46] LABS: BASOPHILS % (AUTO) 0.2 % (0.0-2.0); EOSINOPHILS # (AUTO) 0.2 K/uL (0.0-0.7); EOSINOPHILS % (AUTO) 1.3 % (0.0-7.0); HEMATOCRIT 35.9 % (37.0-47.0); HEMOGLOBIN 11.5 g/dL (12.0-16.0); LYMPHOCYTES # (AUTO) 1.6 K/uL (0.8-4.8); LYMPHOCYTES % (AUTO) 13.4 % (20.5-51.5); MEAN CORPUSCULAR HEMOGLOBIN 28.9 uug (27.0-31.0); MEAN CORPUSCULAR HGB CONC 32 g/dL (32.0-37.0); MEAN CORPUSCULAR VOLUME 90.3 fL (81.0-99.0); MONOCYTES # (AUTO) 0.8 K/uL (0.1-1.30); MONOCYTES % (AUTO) 6.6 % (0.0-11.0); NEUTROPHILS # (AUTO) 9.4 K/uL (1.8-8.9); NEUTROPHILS % (AUTO) 78.5 % (38.5-71.5); PLATELET COUNT (AUTO) 211 K/uL (150-450); RED BLOOD CELL COUNT(AUTO) 3.98 MIL/uL (4.20-5.40); RED CELL DISTRIBUTION WIDTH 17.7 % (11.5-14.5); WHITE BLOOD COUNT (AUTO) 12.1 K/uL (4.0-11.2)
[2016-05-12 11:34] VITALS: BP 107/50
[2016-05-12] MEDS: PIPERACILLIN SODIUM/TAZOBACTAM 2.25 G in IV DEXTROSE 5% 50 ML IV SCH ×2 (13:32→21:33)
[2016-05-12 15:50] VITALS: BP 103/72
[2016-05-12] MEDS: MONTELUKAST SODIUM 10 MG TABLET PO SCH (17:09)
--- NOTE | 2016-05-12 19:45 | NUR ---
PT RECEIVED IN BED RESTING COMFORTABLY. PT IS CONFUSED AND DISORIENTED. IV RUNNING FLUIDS AT 75ML/HR VIA PICC LINE, INTACT. PT ALSO HAS KRUSE CATHETER IN PLACE, INTACT. BED IN LOW AND LOCKED POSITION. SAFETY MEASURES MAINTAINED.
[2016-05-12 20:00] VITALS: BP 106/74
[2016-05-12] MEDS: MIRTAZAPINE 15 MG TABLET PO SCH (20:11)
[2016-05-12] MEDS: Z GUARD REMEDY PASTE 57 GM TUBE TOP PRN (20:12)
--- NOTE | 2016-05-12 21:29 | NUR ---
PT TOLERATED MEDICATIONS CRUSHED IN ICE CREAM WELL. TURNED EVERY TWO HOURS. NO ACUTE DISTRESS NOTED. WILL CONTINUE TO MONITOR FOR SAFETY.
[2016-05-13] MEDS: POTASSIUM CHLORIDE 10 MEQ in IV 1/2NS 1000 ML 1,000 ML IV PRN ×2 (01:09→14:00)
--- NOTE | 2016-05-13 02:00 | NUR ---
pt sleeping intermittently in bed, remains confused and disoriented. Isolation of the nares MRSA. safety measures provided. will continue to monitor for safety.
[2016-05-13 05:51] VITALS: BP 139/66
--- NOTE | 2016-05-13 06:00 | NUR ---
pt slept through out the night intermittently. No acute distress noted. bed in low and locked position. No acute distress noted. will continue to monitor for safety.
[2016-05-13] MEDS: PIPERACILLIN SODIUM/TAZOBACTAM 2.25 G in IV DEXTROSE 5% 50 ML IV SCH ×3 (06:44→22:10)
[2016-05-13 06:54] LABS: BASOPHILS % (AUTO) 0.1 % (0.0-2.0); EOSINOPHILS # (AUTO) 0.1 K/uL (0.0-0.7); EOSINOPHILS % (AUTO) 1.3 % (0.0-7.0); HEMATOCRIT 36.2 % (37.0-47.0); HEMOGLOBIN 11.7 g/dL (12.0-16.0); LYMPHOCYTES # (AUTO) 1.7 K/uL (0.8-4.8); LYMPHOCYTES % (AUTO) 15.6 % (20.5-51.5); MEAN CORPUSCULAR HGB CONC 32 g/dL (32.0-37.0); MONOCYTES # (AUTO) 0.6 K/uL (0.1-1.30); NEUTROPHILS # (AUTO) 8.2 K/uL (1.8-8.9); PLATELET COUNT (AUTO) 218 K/uL (150-450); RED BLOOD CELL COUNT(AUTO) 4.02 MIL/uL (4.20-5.40); WHITE BLOOD COUNT (AUTO) 10.6 K/uL (4.0-11.2)
[2016-05-13 07:04] LABS: ALBUMIN 1.9 g/dL (3.4-5.0); BILIRUBIN,TOTAL 0.6 mg/dL (0.2-1.0); CALCIUM 8.4 mg/dL (8.5-10.1); CREATININE 0.9 mg/dL (0.6-1.3); MAGNESIUM 1.3 mg/dL (1.8-2.4); PHOSPHOROUS 2.8 mg/dL (2.5-4.9); POTASSIUM 3.6 mmol/L (3.5-5.1); TOTAL PROTEIN, SERUM 5.9 g/dL (6.4-8.2)
--- NOTE | 2016-05-13 08:00 | NUR ---
RESTING IN BED ASSISTED WITH MEALS, VERY POOR APPETITE/SPITS FOOD/FEEDER. NO SIGNS OF DISTRESS
[2016-05-13] MEDS: FERROUS SULFATE 325 MG TABEC PO SCH (08:28)
[2016-05-13] MEDS: LACTOBACILLUS RHAMNOSUS GG 1 EACH CAPSULE PO SCH ×2 (08:28→22:10)
[2016-05-13] MEDS: busPIRone 5 MG TABLET PO SCH ×2 (08:28→17:12)
[2016-05-13] MEDS: FOLIC ACID 1 MG TABLET PO SCH (08:28)
[2016-05-13] MEDS: MULTIVIT, IRON, MIN NO. 8, FA TABLET PO SCH (08:28)
[2016-05-13] MEDS: ASCORBIC ACID 500 MG TABLET PO SCH (08:28)
[2016-05-13] MEDS: OMEGA-3 FATTY ACIDS/FISH OIL CAPSULE PO SCH (08:29)
[2016-05-13] MEDS: DOCUSATE SODIUM 100 MG CAPSULE PO SCH (08:29)
[2016-05-13] MEDS: MUPIROCIN 2% OINT 22 GM TUBE NS SCH ×2 (08:29→22:11)
[2016-05-13] MEDS: PANTOPRAZOLE ORAL SUSPENSION 40 MG SUSPDR.PKT PO SCH ×2 (08:29→22:10)
[2016-05-13 10:37] LABS: ANISOCYTOSIS 1+; BAND % (MANUAL) 3 % (0-10); EOSINOPHILS % (MANUAL) 2 % (0-8); LYMPHOCYTES % (MANUAL) 12 % (20-40); MONOCYTES % (MANUAL) 4 % (2-10); NEUTROPHILS % (MANUAL) 79 % (42-75); PLATELET ESTIMATE ADEQUATE
[2016-05-13 10:38] LABS: HYPOCHROMASIA 1+
--- NOTE | 2016-05-13 11:17 | NUR ---
COMPLETE BED BATH GIVEN, WOUND CAR DONE. DENIES PAIN, SOB
[2016-05-13 11:52] VITALS: BP 98/71
[2016-05-13] MEDS ORDERED: MAGNESIUM OXIDE 400 MG TABLET PO ONE (13:00)
--- NOTE | 2016-05-13 14:34 | NUR ---
PICC LINE DRESSING CHANGED
[2016-05-13 15:09] VITALS: BP 99/63
[2016-05-13] MEDS: MONTELUKAST SODIUM 10 MG TABLET PO SCH (17:12)
--- NOTE | 2016-05-13 19:30 | NUR ---
RECEIVED PATIENT IN BED RESTING WITH EYES CLOSED, AWAKENS EASILY TO NAME. NO ACUTE DISTRESS NOTED. NO SOB NOTED/REPORTED. ON AIR MATTRESS INTACT. ON CONTACT ISOLATION. SAFETY MEASURES IN PLACE. WILL CONTINUE TO MONITOR.
[2016-05-13 21:24] VITALS: BP 98/62
[2016-05-13] MEDS: MIRTAZAPINE 15 MG TABLET PO SCH (22:10)
[2016-05-14] MEDS: HYDROCODONE/APAP 10-325 MG TABLET PO PRN (00:47)
--- NOTE | 2016-05-14 00:48 | NUR ---
PT IN BED SCREAMING, C/O SEVERE PAIN ON BOTH LEGS, NORCO PRN GIVEN PRESCRIBED. WILL REASSESS. WILL CONTINUE TO MONITOR.
[2016-05-14] MEDS: POTASSIUM CHLORIDE 10 MEQ in IV 1/2NS 1000 ML 1,000 ML IV PRN (04:18)
[2016-05-14 05:40] VITALS: BP 93/63
[2016-05-14] MEDS: PIPERACILLIN SODIUM/TAZOBACTAM 2.25 G in IV DEXTROSE 5% 50 ML IV SCH ×3 (05:54→21:40)
--- NOTE | 2016-05-14 06:59 | NUR ---
End of shift: Pt in bed resting, slept well. no acute distress per shift. VSS. Pt constipated, Dulcolax supp givem as prescribed this am, will endorse reassessment to day shift. Wound care provided as ordered. Turn/repositioned. All needs met. Contact isolation/ aspiration/Safety precautions maintained.
[2016-05-14 08:01] LABS: CALCIUM 8.2 mg/dL (8.5-10.1); MAGNESIUM 1.4 mg/dL (1.8-2.4); POTASSIUM 3.8 mmol/L (3.5-5.1)
[2016-05-14] MEDS: busPIRone 5 MG TABLET PO SCH ×2 (08:35→17:18)
[2016-05-14] MEDS: PANTOPRAZOLE ORAL SUSPENSION 40 MG SUSPDR.PKT PO SCH ×2 (08:35→21:37)
[2016-05-14] MEDS: LACTOBACILLUS RHAMNOSUS GG 1 EACH CAPSULE PO SCH ×2 (08:35→21:37)
[2016-05-14] MEDS: Z GUARD REMEDY PASTE 57 GM TUBE TOP PRN (08:36)
[2016-05-14] MEDS: ASCORBIC ACID 500 MG TABLET PO SCH (08:36)
[2016-05-14] MEDS: OMEGA-3 FATTY ACIDS/FISH OIL CAPSULE PO SCH (08:36)
[2016-05-14] MEDS: FOLIC ACID 1 MG TABLET PO SCH (08:36)
[2016-05-14] MEDS: FERROUS SULFATE 325 MG TABEC PO SCH (08:36)
[2016-05-14] MEDS: MULTIVIT, IRON, MIN NO. 8, FA TABLET PO SCH (08:36)
[2016-05-14] MEDS: DOCUSATE SODIUM 100 MG CAPSULE PO SCH (08:36)
--- NOTE | 2016-05-14 11:00 | NUR ---
CONTINUE CURRENT TX PLAN AWAITING DC PLAN. CONTINUE IV ATB ZOSYN. WOUND CARE TO BUTTOCKS ORDERED
[2016-05-14 11:28] VITALS: BP 109/75
--- NOTE | 2016-05-14 14:55 | NUR ---
RESTING NO SIGNS OF PAIN
--- NOTE | 2016-05-14 15:01 | NUR ---
DR BARNES NOTED LOW MG WITH ORDERS
[2016-05-14] MEDS: MAGNESIUM SULFATE/D5W 100 ML IV SCH ×4 (15:08→17:45)
[2016-05-14 15:39] VITALS: BP 94/63
[2016-05-14] MEDS: MONTELUKAST SODIUM 10 MG TABLET PO SCH (17:18)
[2016-05-14 19:00] VITALS: BP 93/65
--- NOTE | 2016-05-14 19:30 | NUR ---
Received patient sleeping with no s/s of acute distress. Will continue to monitor.
[2016-05-14] MEDS: MIRTAZAPINE 15 MG TABLET PO SCH (21:37)
[2016-05-15] MEDS: POTASSIUM CHLORIDE 10 MEQ in IV 1/2NS 1000 ML 1,000 ML IV PRN ×2 (00:11→15:49)
[2016-05-15 04:00] VITALS: BP 98/71
[2016-05-15] MEDS: PIPERACILLIN SODIUM/TAZOBACTAM 2.25 G in IV DEXTROSE 5% 50 ML IV SCH ×2 (05:41→15:44)
--- NOTE | 2016-05-15 06:50 | NUR ---
Patient lying in bed awake. No s/s of distress. Due meds given. Frequent checks done. Kept comfortable. Safety precautions observed. Call light within reach. Will endorse accordingly. Addendum: 05/15/16 at 0714 by RENEE BARON RN Patient lying in bed awake. No s/s of distress. IVF transfusing well. Due meds given. Frequent checks done. Kept comfortable. Safety precautions observed. Call light within reach. Will endorse accordingly.
[2016-05-15 07:14] LABS: CALCIUM 7.8 mg/dL (8.5-10.1); CREATININE 0.9 mg/dL (0.6-1.3); MAGNESIUM 2.5 mg/dL (1.8-2.4); POTASSIUM 3.5 mmol/L (3.5-5.1)
[2016-05-15] MEDS ORDERED: PIPE2.254 IV (08:06)
[2016-05-15] MEDS ORDERED: LACT1CAP57 PO (08:06)
[2016-05-15] MEDS: FOLIC ACID 1 MG TABLET PO SCH (08:31)
[2016-05-15] MEDS: busPIRone 5 MG TABLET PO SCH ×2 (08:31→17:34)
[2016-05-15] MEDS: LACTOBACILLUS RHAMNOSUS GG 1 EACH CAPSULE PO SCH (08:31)
[2016-05-15] MEDS: DOCUSATE SODIUM 100 MG CAPSULE PO SCH (08:31)
[2016-05-15] MEDS: PANTOPRAZOLE ORAL SUSPENSION 40 MG SUSPDR.PKT PO SCH (08:31)
[2016-05-15] MEDS: OMEGA-3 FATTY ACIDS/FISH OIL CAPSULE PO SCH (08:31)
[2016-05-15] MEDS: MULTIVIT, IRON, MIN NO. 8, FA TABLET PO SCH (08:31)
[2016-05-15] MEDS: FERROUS SULFATE 325 MG TABEC PO SCH (08:31)
[2016-05-15] MEDS: ASCORBIC ACID 500 MG TABLET PO SCH (08:32)
[2016-05-15 12:00] VITALS: BP 97/69
[2016-05-15 16:00] VITALS: BP 100/66
--- NOTE | 2016-05-15 17:00 | NUR ---
PATIENT DISCHARGED AT 1700 TO [facility] IN [place]. REPORT GIVEN TO RECEIVING RN WALLY. BELONGINGS TAKEN BY AMBULANCE STAFF, PATIENT REMAINS UNABLE TO GATHER HER BELONGINGS, A+O X 1, PATIENT REMAINS CONFUSED. PATIENT DISCHARGED WITH TRIPLE LUMEN PICC IN RIGHT UPPER ARM IN TACT, FLUSHED WITH NS. WOUND ON SACRUM CLEANSED WITH NS, APPLIED Z-GUARD, HYDROGEL, AND COVERED WITH MEPILEX. PHOTOS OF WOUND TAKEN AND PLACED IN PATIENT CHART.
--- NOTE | 2016-05-15 17:33 | NUR ---
PATIENT VITALS AT TIME OF DISCHARGE: BP 98/67 O2 97% ON ROOM AIR RR = 16 PATIENT DISCHARGED WITH KRUSE CATHETER IN TACT. YELLOW URINE WITH SMALL TRACES OF COUDLY CONTENT, 750 CC'S URINE OUTPUT AT 1700.
== END 2016-05-15 17:00 | DRG 720 ==
LOC: ER 02:44 → CCU 05:25 → MED 05-09 19:22
PROVIDERS: ADMIT Internal Medicine; ATTEND Internal Medicine
PROC: B548ZZA Ultrasonography of Superior Vena Cava, Guidance (ICD-10-PCS; principal; 2016-05-05)
PROC: 02HV33Z Insertion of Infusion Device into Superior Vena Cava, Percutaneous Approach (ICD-10-PCS; principal; 2016-05-05)
PROC: 30233N1 Transfusion of Nonautologous Red Blood Cells into Peripheral Vein, Percutaneous Approach (ICD-10-PCS; 2016-05-06)
DX: A41.9 Sepsis, unspecified organism (principal); N17.0 Acute kidney failure with tubular necrosis; R65.21 Severe sepsis with septic shock; E43 Unspecified severe protein-calorie malnutrition; E87.0 Hyperosmolality and hypernatremia; K81.0 Acute cholecystitis; F03.90 Unspecified dementia, unspecified severity, without behavioral disturbance, psychotic disturbance, mood disturbance, and anxiety; E86.9 Volume depletion, unspecified; R13.10 Dysphagia, unspecified; E87.5 Hyperkalemia; I12.9 Hypertensive chronic kidney disease with stage 1 through stage 4 chronic kidney disease, or unspecified chronic kidney disease; N18.9 Chronic kidney disease, unspecified; N39.0 Urinary tract infection, site not specified; D64.9 Anemia, unspecified; M06.9 Rheumatoid arthritis, unspecified; B96.20 Unspecified Escherichia coli [E. coli] as the cause of diseases classified elsewhere; E87.6 Hypokalemia; F32.9 Major depressive disorder, single episode, unspecified; Z22.322 Carrier or suspected carrier of Methicillin resistant Staphylococcus aureus; N13.6 Pyonephrosis; E88.09 Other disorders of plasma-protein metabolism, not elsewhere classified
CPT/HCPCS: 36415; 36600; 70030-TC; 71010; 76770; 78445; 83690; 83735; 84100; 84132; 85025; 86850; 86900; 86901; 86920; 87040; 87077; 87086; 92610; 93005; A4663; A9537; C9113; J0610; J0696; J1170; J1815; J1940; J1956; J2543; J3475; J3480; J3490; J7030; J7040; J7050; J7060; P9016-BL; P9021

== ENCOUNTER 2016-07-11 03:11 | Inpatient (IN) | payer MEDICAID, MEDICARE ==
[2016-07-11] VITALS (54 sets, daily range): BP systolic 77–138; BP diastolic 38–90
[~2016-07-11] VITALS: Ht 147.3 cm; Wt 40.3 kg
[~2016-07-11 03:11] MED LIST: ACET-2154 PO; BISA10SU12 RC; BUSP15TA3 PO; CRAN450T9 PO; CYCL5TAB PO; DIPH25CA83 PO; DOCU-25 PO; FERR-58 PO; FOLI1TAB16 PO; HPN PO; HYDR-548 PO; IMMODIUM PO; LACT1CAP57 PO; LISI-607 PO; MAGN400O4 PO; MIRT15TA PO; MONT10TA22 PO; MVI WITH MINERALS PO; NA P133E RC; OMEG500C PO; PIPE2.254 IV; SODIUM CHLORIDE PO; VIT C PO; ZINC57OI4 TP
[2016-07-11] MEDS ORDERED: IV NORMAL SALINE 1000 ML BAG IV ONE (04:00)
[2016-07-11 04:16] LABS: BASOPHILS # (AUTO) 0.3 K/uL (0.0-8.0); BASOPHILS % (AUTO) 0.6 % (0.0-2.0); EOSINOPHILS % (AUTO) 0.1 % (0.0-7.0); HEMATOCRIT 24.7 % (37-47); HEMOGLOBIN 8.5 G/DL (12.0-16.0); LYMPHOCYTES % (AUTO) 2.4 % (20.5-51.5); MEAN CORPUSCULAR HEMOGLOBIN 32.4 UUG (27.0-31.0); MEAN CORPUSCULAR HGB CONC 35 g/dL (32.0-37.0); MEAN CORPUSCULAR VOLUME 93.8 FL (81.0-99.0); MONOCYTES # (AUTO) 1.1 K/UL (0.1-1.30); MONOCYTES % (AUTO) 2.6 % (0.0-11.0); NEUTROPHILS # (AUTO) 40.1 K/UL (1.8-8.9); NEUTROPHILS % (AUTO) 94.3 % (38.5-71.5); PLATELET COUNT (AUTO) 342 K/UL (150-450); RED BLOOD CELL COUNT(AUTO) 2.63 MIL/UL (4.2-5.4); RED CELL DISTRIBUTION WIDTH 15.4 % (11.5-14.5)
[2016-07-11 04:25] LABS: WHITE BLOOD COUNT (AUTO) 42.5 K/UL (4.0-11.2)
[2016-07-11] MEDS ORDERED: LEVOFLOXACIN 750 MG/D5W 150 ML PIGGYBACK IV ONE (04:30)
[2016-07-11] MEDS ORDERED: VANCOMYCIN IV 1,000 MG in IV DEXTROSE 5% 250 ML IV ONE (04:30)
[2016-07-11] MEDS ORDERED: PIPERACILLIN SODIUM/TAZOBACTAM 3.375 G in IV DEXTROSE 5% 50 ML IV ONE (04:30)
[2016-07-11 04:33] LABS: TROPONIN I 0.031 ng/mL (0.00-0.056)
[2016-07-11] MEDS ORDERED: MEGE400O PO (04:39)
[2016-07-11 04:42] LABS: LACTIC ACID 1.9 mmol/L (0.4-2.0)
[2016-07-11] MEDS ORDERED: PIPERACILLIN/TAZOBACTAM/D5W 50 ML IV ONE (04:46)
[2016-07-11 04:47] LABS: BAND % (MANUAL) 13 % (0-10); LYMPHOCYTES % (MANUAL) 4 % (20-40); METAMYELOCYTES % 1 % (0-1); MONOCYTES % (MANUAL) 2 % (2-10); NEUTROPHILS % (MANUAL) 80 % (42-75)
[2016-07-11 04:48] LABS: ANISOCYTOSIS 1+; PLATELET ESTIMATE ADEQUATE
[2016-07-11 04:49] LABS: ROULEAU 2+
[2016-07-11 04:56] LABS: ALBUMIN 1.9 g/dL (3.4-5.0); BILIRUBIN,DIRECT 0.1 mg/dL (0.0-0.2); BILIRUBIN,TOTAL 0.4 mg/dL (0.2-1.0); TOTAL PROTEIN, SERUM 6.9 g/dL (6.4-8.2)
--- NOTE | 2016-07-11 05:00 | NUR ---
PT REFUSING GOOD, WAS GIVEN BED MELVIN FOR URINE, PT GAVE STOOL SAMPLE INSTEAD.... STOOL SAMPLE OBTAINED AND SENT TO LAB... Addendum: 07/11/16 at 0732 by KATARINA attempted to put in good 3 times, pt refused good after 3rd try, bed melvin given.... urine not obtained...
[2016-07-11 05:01] LABS: CALCIUM 8.6 mg/dL (8.5-10.1); POTASSIUM 6.1 mmol/L (3.5-5.1)
[2016-07-11] MEDS ORDERED: SODIUM BICARBONATE 8.4% 50 MEQ/50 ML VIAL IV ONE (05:30)
[2016-07-11] MEDS ORDERED: CALCIUM CHLORIDE 1 GM/10 ML DISP.SYRIN IVP ONE ×2 (05:30→06:55)
[2016-07-11] MEDS ORDERED: DEXTROSE 50% 50 ML DISP.SYRIN IV ONE ×2 (05:30→08:45)
[2016-07-11] MEDS ORDERED: INSULIN REGULAR, HUMAN 1,000 UNITS/10 ML VIAL IV ONE (05:30)
[2016-07-11] MEDS ORDERED: LEVOFLOXACIN 750MG/D5W 150 ML IV ONE (05:55)
[2016-07-11] MEDS ORDERED: DILTIAZEM HCL IV 125 MG in IV DEXTROSE 5% 100 ML IV PRN (06:15)
[2016-07-11] MEDS ORDERED: DEXTROSE 50% 50 ML DISP.SYRIN ONE ×2 (06:27→08:50)
[2016-07-11] MEDS ORDERED: SODIUM BICARBONATE 8.4% 50 MEQ/50 ML DISP.SYRIN IV ONE (06:28)
[2016-07-11] MEDS ORDERED: INSULIN REGULAR, HUMAN 300 UNIT/3 ML VIAL ONE (06:29)
[2016-07-11] MEDS: NOREPINEPHRINE BITARTRATE 8 MG in IV DEXTROSE 5% 250 ML IV ONE ×2 (06:49→08:23)
--- NOTE | 2016-07-11 09:00 | NUR ---
PT WAS TRANSFERED TO CCU ROOM #5. REPORT WAS GIVEN TO CCU RN.
[2016-07-11] MEDS ORDERED: VANCOMYCIN IV 200 ML ONE (09:05)
--- NOTE | 2016-07-11 10:09 | NUR ---
DR DUTTA STAFF RESEARCH SCIENTIST FOR DR GIBBS. PAGED DR DUTTA FOR ADMITTING ORDERS. WAITING FOR CALL TO BE RETURNED
[2016-07-11] MEDS ORDERED: LOPERAMIDE HCL 1 MG/5 ML UDC PO PRN (12:15)
[2016-07-11] MEDS: OMEGA-3 FATTY ACIDS/FISH OIL CAPSULE PO SCH ×2 (12:15→13:16)
[2016-07-11] MEDS ORDERED: FLEET ENEMA 133 ML BOTTLE RC PRN (12:15)
[2016-07-11] MEDS: MULTIVIT, IRON, MIN NO. 8, FA TABLET PO SCH ×2 (12:15→13:16)
[2016-07-11] MEDS ORDERED: ACETAMINOPHEN 325 MG TABLET PO PRN (12:15)
[2016-07-11] MEDS ORDERED: MAGNESIUM HYDROXIDE 30 ML LIQUID UDC PO PRN (12:15)
[2016-07-11] MEDS: IV NS 1000 ML 1,000 ML IV PRN ×2 (12:15→23:33)
[2016-07-11] MEDS ORDERED: BISACODYL 10 MG SUPP.RECT RC PRN (12:15)
[2016-07-11] MEDS: NOREPINEPHRINE BITARTRATE 8 MG in IV DEXTROSE 5% 500 ML IV PRN (12:15)
[2016-07-11] MEDS ORDERED: ZINC OXIDE OINT 30 GM TUBE TOP PRN (12:15)
[2016-07-11] MEDS ORDERED: MISCELLANEOUS MED XX SCH (13:00)
[2016-07-11] MEDS: FOLIC ACID 1 MG TABLET PO SCH (13:16)
[2016-07-11] MEDS: FERROUS SULFATE 325 MG TABEC PO SCH (13:17)
[2016-07-11] MEDS: ASCORBIC ACID 500 MG TABLET PO SCH (13:17)
[2016-07-11] MEDS: CYCLOBENZAPRINE HCL 10 MG TABLET PO SCH ×2 (13:31→17:00)
[2016-07-11] MEDS ORDERED: PIPERACILLIN/TAZOBACTAM/D5W 3.375 G in PREMIXED 1 EACH IV SCH (14:00)
--- NOTE | 2016-07-11 14:08 | NUR ---
DOCTOR SAI PAGED FOR CONTINUATION OF ANTIBIOTIC ORDERS.
[2016-07-11] MEDS ORDERED: PIPERACILLIN/TAZOBACTAM/D5W 2.25 G in PREMIXED 1 EACH IV SCH ×2 (14:30→18:00)
[2016-07-11 14:54] LABS: *BILIRUBIN,URIN NEGATIVE (NEGATIVE); *BLOOD, URINE 3+ (NEGATIVE); *CLARITY,URINE CLOUDY (CLEAR); *COLOR,URINE YELLOW (YELLOW); *KETONES,URINE NEGATIVE (NEGATIVE); *PROTEIN,URINE 2+ (NEGATIVE); *UROBILINOGEN,URINE 0.2 E.U./dl (NORMAL); LEUKOCYTE ESTERASE ,URINE 3+ (NEGATIVE); NITRITE, URINE NEGATIVE (NEGATIVE); UGLUCOSE NEGATIVE (NEGATIVE)
[2016-07-11 15:08] LABS: BACTERIA,URINE FEW /HPF (NONE SEEN); SQUAMOUS EPITHELIAL CELL,UR FEW /HPF (NONE SEEN); WBC,URINE 80-100 /HPF (0-3)
[2016-07-11] MEDS: PIPERACILLIN/TAZOBACTAM/D5W 2.25 G in PREMIXED 1 EACH IV SCH ×2 (15:09→21:15)
--- NOTE | 2016-07-11 15:48 | NUR ---
CLINICAL PHARMACY NOTE-VANCOMYCIN PHARMACY TO DOSE Subjective: To start vanco in this 65y/o female in ARF for indication of UTI Objective: height 147 cm weight 46 kg BUN 105 Scr 3.0 (ARF) Wbc 42.5 Temp 99.2 One dose 1gm vanco give in ER @0900 07/11 Assessment/Plan Will dose by fall off level due to pt in ARF, one dose of 1gm was given in ER this am. Will check random tomorrow with am labs (due @0600). Will check level and continue to dose per level. Will continue to monitor
[2016-07-11] MEDS: busPIRone 10 MG TABLET PO SCH (17:00)
--- NOTE | 2016-07-11 19:30 | NUR ---
Received patient in no acute distress. AAOx1, garbled speech. Complains of pain in left leg noted contraction, however denies need for medication. Will continue to monitor. On bedside monitor. Sinus tach, HR 120. Hypotensive, will continue to monitor. Per report, patient off pressors since 1800. Will administer/titrate as ordered as necessary. Room air, SpO2 and RR WNL. Vazquez cath intact and draining. JOHN PICC in place, patent. On 1st step mattress. SBAR report received from Hedy FLOR RN. Will continue plan of care.
[2016-07-11] MEDS: MIRTAZAPINE 15 MG TABLET PO SCH (21:13)
[2016-07-11] MEDS: MEGESTROL ACETATE 400 MG/10 ML LIQUID UDC PO SCH (21:13)
[2016-07-11] MEDS: MONTELUKAST SODIUM 10 MG TABLET PO SCH (21:14)
[2016-07-12] VITALS (94 sets, daily range): BP systolic 58–132; BP diastolic 23–86
[2016-07-12 05:45] LABS: BASOPHILS % (AUTO) 0.1 % (0.0-2.0); EOSINOPHILS # (AUTO) 0.2 K/uL (0.0-0.7); EOSINOPHILS % (AUTO) 0.4 % (0.0-7.0); HEMATOCRIT 25.7 % (37-47); HEMOGLOBIN 8.8 G/DL (12.0-16.0); LYMPHOCYTES # (AUTO) 0.7 K/UL (0.8-4.8); LYMPHOCYTES % (AUTO) 1.5 % (20.5-51.5); MEAN CORPUSCULAR HEMOGLOBIN 32.5 UUG (27.0-31.0); MEAN CORPUSCULAR HGB CONC 34 g/dL (32.0-37.0); MEAN CORPUSCULAR VOLUME 95.3 FL (81.0-99.0); MONOCYTES # (AUTO) 3.6 K/UL (0.1-1.30); MONOCYTES % (AUTO) 7.7 % (0.0-11.0); NEUTROPHILS # (AUTO) 41.9 K/UL (1.8-8.9); NEUTROPHILS % (AUTO) 90.3 % (38.5-71.5); PLATELET COUNT (AUTO) 389 K/UL (150-450); RED CELL DISTRIBUTION WIDTH 15.2 % (11.5-14.5)
[2016-07-12 06:03] LABS: ALBUMIN 1.6 g/dL (3.4-5.0); BILIRUBIN,TOTAL 0.6 mg/dL (0.2-1.0); MAGNESIUM 2.1 mg/dL (1.8-2.4); PHOSPHOROUS 4.9 mg/dL (2.5-4.9); POTASSIUM 4.2 mmol/L (3.5-5.1); TOTAL PROTEIN, SERUM 6.2 g/dL (6.4-8.2)
[2016-07-12 06:07] LABS: CALCIUM 8.6 mg/dL (8.5-10.1)
[2016-07-12 06:15] LABS: WHITE BLOOD COUNT (AUTO) 46.4 K/UL (4.0-11.2)
[2016-07-12 06:16] LABS: CREATININE 1.8 mg/dL (0.6-1.3)
[2016-07-12 06:27] LABS: ANISOCYTOSIS 1+; BAND % (MANUAL) 14 % (0-10); EOSINOPHILS % (MANUAL) 1 % (0-8); LYMPHOCYTES % (MANUAL) 2 % (20-40); NEUTROPHILS % (MANUAL) 83 % (42-75); PLATELET ESTIMATE ADEQUATE
[2016-07-12] MEDS: PIPERACILLIN/TAZOBACTAM/D5W 2.25 G in PREMIXED 1 EACH IV SCH ×2 (06:42→13:32)
[2016-07-12] MEDS: DOCUSATE SODIUM 100 MG CAPSULE PO SCH (09:00)
[2016-07-12] MEDS: OMEGA-3 FATTY ACIDS/FISH OIL CAPSULE PO SCH (09:00)
[2016-07-12] MEDS ORDERED: VANCOMYCIN IV 750 MG in IV DEXTROSE 5% 250 ML IV ONE (09:00)
[2016-07-12] MEDS ORDERED: MISCELLANEOUS MED PO SCH (09:00)
[2016-07-12] MEDS: SODIUM CHLORIDE 1,000 MG TABLET PO SCH (09:00)
--- NOTE | 2016-07-12 09:00 | NUR ---
PATIENT ON IV NS.
[2016-07-12] MEDS: MEGESTROL ACETATE 400 MG/10 ML LIQUID UDC PO SCH ×2 (10:09→20:42)
[2016-07-12] MEDS: ASCORBIC ACID 500 MG TABLET PO SCH (10:09)
[2016-07-12] MEDS: FERROUS SULFATE 325 MG TABEC PO SCH (10:09)
[2016-07-12] MEDS: busPIRone 10 MG TABLET PO SCH ×2 (10:09→18:03)
[2016-07-12] MEDS: FOLIC ACID 1 MG TABLET PO SCH (10:09)
[2016-07-12] MEDS: CYCLOBENZAPRINE HCL 10 MG TABLET PO SCH ×3 (10:10→18:03)
[2016-07-12] MEDS: MULTIVIT, IRON, MIN NO. 8, FA TABLET PO SCH (10:10)
--- NOTE | 2016-07-12 11:45 | NUR ---
CLINICAL PHARMACY NOTE-VANCOMYCIN PHARMACY TO DOSE Subjective: To continue vanco in this 65y/o female in ARF for indication of UTI Objective: height 147 cm weight 46 kg BUN 60 Scr 1.8 (resolving ARF) Wbc 46.4 Temp 98.6 Random 13.3 (today with am labs) Assessment/Plan Will dose by fall off level due to pt in ARF, continues to resolve today. Dosed one time 750mg vanco at 0900 today. Will check random tomorrow with am labs (due @0600). Will check level and continue to dose per level. Will continue to monitor
[2016-07-12] MEDS: IV NS 1000 ML 1,000 ML IV PRN ×2 (12:00→22:34)
[2016-07-12] MEDS: HYDROCODONE/APAP 10-325 MG TABLET PO PRN (12:20)
[2016-07-12] MEDS: MONTELUKAST SODIUM 10 MG TABLET PO SCH (20:42)
[2016-07-12] MEDS: MIRTAZAPINE 15 MG TABLET PO SCH (20:43)
[2016-07-12] MEDS: NOREPINEPHRINE BITARTRATE 8 MG in IV DEXTROSE 5% 500 ML IV PRN (20:44)
[2016-07-12] MEDS: HEPARIN SODIUM,PORCINE 5,000 UNITS/ML VIAL SQ SCH (22:56)
[2016-07-12] MEDS ORDERED: HEPARIN SODIUM,PORCINE 5,000 UNITS/ML VIAL ONE ×2 (23:05→23:34)
[2016-07-12] MEDS: MEROPENEM 0.5 G in IV NORMAL SALINE 50 ML IV SCH (23:33)
[2016-07-12] MEDS ORDERED: MEROPENEM 500 MG VIAL IV ONE (23:34)
[2016-07-12 23:59] LABS: *BILIRUBIN,URIN NEGATIVE (NEGATIVE); *BLOOD, URINE 2+ (NEGATIVE); *CLARITY,URINE CLOUDY (CLEAR); *COLOR,URINE LIGHT YELLOW (YELLOW); *KETONES,URINE NEGATIVE (NEGATIVE); *PROTEIN,URINE 1+ (NEGATIVE); *UROBILINOGEN,URINE 0.2 E.U./dl (NORMAL); LEUKOCYTE ESTERASE ,URINE 3+ (NEGATIVE); NITRITE, URINE NEGATIVE (NEGATIVE); PH,URINE 6.5 (5.0-8.0); UGLUCOSE NEGATIVE (NEGATIVE)
[2016-07-13] VITALS (67 sets, daily range): BP systolic 55–150; BP diastolic 21–119
[2016-07-13 00:04] LABS: BACTERIA,URINE MANY /HPF (NONE SEEN); SQUAMOUS EPITHELIAL CELL,UR FEW /HPF (NONE SEEN); WBC,URINE TNTC /HPF (0-3)
[2016-07-13] MEDS: HYDROCODONE/APAP 10-325 MG TABLET PO PRN ×2 (01:04→09:27)
[2016-07-13 05:16] LABS: BASOPHILS # (AUTO) 0.1 K/uL (0.0-8.0); BASOPHILS % (AUTO) 0.2 % (0.0-2.0); EOSINOPHILS # (AUTO) 0.1 K/uL (0.0-0.7); EOSINOPHILS % (AUTO) 0.5 % (0.0-7.0); HEMATOCRIT 24.1 % (37-47); HEMOGLOBIN 8.3 G/DL (12.0-16.0); LYMPHOCYTES # (AUTO) 0.9 K/UL (0.8-4.8); LYMPHOCYTES % (AUTO) 3.1 % (20.5-51.5); MEAN CORPUSCULAR HEMOGLOBIN 32.8 UUG (27.0-31.0); MEAN CORPUSCULAR HGB CONC 35 g/dL (32.0-37.0); MONOCYTES # (AUTO) 1.1 K/UL (0.1-1.30); MONOCYTES % (AUTO) 3.8 % (0.0-11.0); NEUTROPHILS # (AUTO) 26.1 K/UL (1.8-8.9); NEUTROPHILS % (AUTO) 92.4 % (38.5-71.5); PLATELET COUNT (AUTO) 354 K/UL (150-450); RED BLOOD CELL COUNT(AUTO) 2.54 MIL/UL (4.2-5.4); RED CELL DISTRIBUTION WIDTH 15.3 % (11.5-14.5); WHITE BLOOD COUNT (AUTO) 28.3 K/UL (4.0-11.2)
[2016-07-13 05:22] LABS: IRON, SERUM 22 ug/dL (50-175)
[2016-07-13 05:28] LABS: ALANINE AMINOTRANSFERASE 12 U/L (14-59); ALKALINE PHOSPHATASE 111 U/L (50-136); ASPARTATE AMINOTRANSFERASE 15 U/L (15-37); BILIRUBIN,TOTAL 0.5 mg/dL (0.2-1.0); CALCIUM 8.4 mg/dL (8.5-10.1); CHLORIDE 112 mmol/L (98-107); CREATININE 1.2 mg/dL (0.6-1.3); GFR 45 mL/min (>60); GLUCOSE 113 mg/dL (74-106); MAGNESIUM 1.8 mg/dL (1.8-2.4); PHOSPHOROUS 2.9 mg/dL (2.5-4.9); POTASSIUM 3.5 mmol/L (3.5-5.1); SODIUM SERUM 142 mmol/L (136-145); TOTAL PROTEIN, SERUM 5.7 g/dL (6.4-8.2); UREA NITROGEN, BLOOD 35 mg/dL (7-18); VANCOMYCIN,RANDOM 15.7 ug/mL (18.0-26.0)
[2016-07-13 05:38] LABS: BAND % (MANUAL) 16 % (0-10); EOSINOPHILS % (MANUAL) 1 % (0-8); LYMPHOCYTES % (MANUAL) 1 % (20-40); MONOCYTES % (MANUAL) 1 % (2-10); NEUTROPHILS % (MANUAL) 81 % (42-75); PLATELET ESTIMATE ADEQUATE
[2016-07-13 05:39] LABS: ANISOCYTOSIS 1+
[2016-07-13 05:41] LABS: CARBON DIOXIDE 18 mmol/L (21-32)
[2016-07-13 05:42] LABS: ALBUMIN 1.4 g/dL (3.4-5.0); CREATINE KINASE, TOTAL < 7 U/L (26-192)
[2016-07-13 06:11] LABS: FERRITIN 2271 ng/mL (8-252)
[2016-07-13] MEDS ORDERED: MEROPENEM 500 MG VIAL IV ONE (06:13)
[2016-07-13] MEDS: MEROPENEM 0.5 G in IV NORMAL SALINE 50 ML IV SCH ×2 (06:47→13:19)
--- NOTE | 2016-07-13 07:27 | NUR ---
Heparin removed from [facility] 07/12 7919. Administered as ordered
[2016-07-13] MEDS ORDERED: VANCOMYCIN IV 750 MG in IV DEXTROSE 5% 250 ML IV ONE (09:00)
[2016-07-13] MEDS: OMEGA-3 FATTY ACIDS/FISH OIL CAPSULE PO SCH (09:26)
[2016-07-13] MEDS: ASCORBIC ACID 500 MG TABLET PO SCH (09:26)
[2016-07-13] MEDS: MULTIVIT, IRON, MIN NO. 8, FA TABLET PO SCH (09:26)
[2016-07-13] MEDS: FERROUS SULFATE 325 MG TABEC PO SCH (09:27)
[2016-07-13] MEDS: DOCUSATE SODIUM 100 MG CAPSULE PO SCH (09:27)
[2016-07-13] MEDS: busPIRone 10 MG TABLET PO SCH ×2 (09:29→17:14)
[2016-07-13] MEDS: CYCLOBENZAPRINE HCL 10 MG TABLET PO SCH ×3 (09:29→17:13)
[2016-07-13] MEDS: SODIUM CHLORIDE 1,000 MG TABLET PO SCH (09:31)
[2016-07-13] MEDS: MEGESTROL ACETATE 400 MG/10 ML LIQUID UDC PO SCH ×2 (09:32→20:24)
[2016-07-13] MEDS: FOLIC ACID 1 MG TABLET PO SCH (09:34)
[2016-07-13] MEDS: HEPARIN SODIUM,PORCINE 5,000 UNITS/ML VIAL SQ SCH ×2 (09:35→20:26)
--- NOTE | 2016-07-13 10:02 | NUR ---
CLINICAL PHARMACY NOTE-VANCOMYCIN PHARMACY TO DOSE Subjective: To continue vanco in this 65y/o female in ARF for indication of UTI Objective: height 147 cm weight 46 kg BUN 35 Scr 1.2 (resolving ARF) Wbc 28.3 Temp 98.6 Random 15.7 (today with am labs) Assessment/Plan Will dose by fall off level due to pt in ARF, continues to resolve today. Dosed one time 750mg vanco at 0900 today. Will check random tomorrow with am labs (due @0600). Will check level and continue to dose per level. Will continue to monitor
[2016-07-13] MEDS: IV NS 1000 ML 1,000 ML IV PRN (10:30)
--- NOTE | 2016-07-13 11:00 | NUR ---
seen by dr dejesus. orders received Addendum: 07/13/16 at 1558 by SARA SERRANO RN Amended: Links added.
--- NOTE | 2016-07-13 11:12 | NUR ---
seen by dr farahmandian. ZHANG aware of positive mrsa nares. orders received Addendum: 07/13/16 at 1112 by SARA SERRANO RN Amended: Links added. Addendum: 07/13/16 at 1115 by SARA SERRANO RN Amended: Links added.
--- NOTE | 2016-07-13 11:15 | NUR ---
talked to dr dg jacome hypotension on levophed drip, and also persistent tachycardia. orders received Addendum: 07/13/16 at 1115 by SARA SERRANO RN Amended: Links added.
[2016-07-13] MEDS ORDERED: IPRATROPIUM BROMIDE 0.5 MG/2.5 ML NEBU NEB PRN (11:30)
[2016-07-13] MEDS ORDERED: LEVALBUTEROL HCL NEB 0.63 MG/3 ML NEBU NEB PRN (11:30)
[2016-07-13] MEDS: MUPIROCIN 2% OINT 22 GM TUBE NS SCH ×2 (12:35→20:28)
[2016-07-13] MEDS: MORPHINE SULFATE 2 MG/1 ML DISP.SYRIN IV PRN ×2 (12:58→17:14)
--- NOTE | 2016-07-13 14:00 | NUR ---
seen by dr nino. orders received Addendum: 07/13/16 at 1553 by SARA SERRANO RN Amended: Annamarie added. Addendum: 07/13/16 at 1558 by SARA SERRANO RN Amended: Annamarie added. Addendum: 07/13/16 at 1558 by SARA SERRANO RN Amended: Links added.
--- NOTE | 2016-07-13 19:00 | NUR ---
report given to SDelafuenteRN Addendum: 07/13/16 at 1955 by SARA SERRANO RN Amended: Links added.
--- NOTE | 2016-07-13 19:15 | NUR ---
Received report from BETH Scales
[2016-07-13] MEDS ORDERED: NORMAL SALINE FLUSH 10 ML DISP.SYRIN IV PRN (19:30)
--- NOTE | 2016-07-13 20:00 | NUR ---
Assessment done. Pt is alert and very much awake, talking to herself.VS stable except HR ST's, Pt is alert to self and place but not to day/date and purpose. With hx of dementia. Upper and lower extremeties observed deformities. Stage 2 sacral area see pictures in the chart.On IV fluis NS at 100mls/hr.
[2016-07-13] MEDS: MONTELUKAST SODIUM 10 MG TABLET PO SCH (20:25)
[2016-07-13] MEDS: MIRTAZAPINE 15 MG TABLET PO SCH (20:25)
[2016-07-13] MEDS ORDERED: MEROPENEM 1 G in IV NORMAL SALINE 50 ML IV SCH (21:00)
[2016-07-13] MEDS: MEROPENEM 1 G in IV NORMAL SALINE 100 ML IV SCH (21:32)
[2016-07-13] MEDS: NORMAL SALINE FLUSH 10 ML DISP.SYRIN IV SCH (21:33)
[2016-07-14] VITALS (67 sets, daily range): BP systolic 78–167; BP diastolic 37–103
--- NOTE | 2016-07-14 | NUR ---
Pt remained awake and talking to herself and sometimes sleeping.HR remained ST's , administered Morphine for restlessness and left leg pain.
[2016-07-14] MEDS: IV NS 1000 ML 1,000 ML IV PRN ×2 (00:12→13:34)
[2016-07-14] MEDS: MORPHINE SULFATE 2 MG/1 ML DISP.SYRIN IV PRN ×3 (00:16→16:14)
--- NOTE | 2016-07-14 04:00 | NUR ---
Continue skin care, turn and reposition.
[2016-07-14 05:33] LABS: BILIRUBIN,TOTAL 0.5 mg/dL (0.2-1.0); CALCIUM 7.9 mg/dL (8.5-10.1); CREATININE 0.8 mg/dL (0.6-1.3); MAGNESIUM 1.5 mg/dL (1.8-2.4); PHOSPHOROUS 3.3 mg/dL (2.5-4.9); POTASSIUM 3.4 mmol/L (3.5-5.1); TOTAL PROTEIN, SERUM 5.2 g/dL (6.4-8.2); VANCOMYCIN,RANDOM 14.4 ug/mL (18.0-26.0)
[2016-07-14 05:39] LABS: ALBUMIN 1.4 g/dL (3.4-5.0)
[2016-07-14 05:49] LABS: BASOPHILS % (AUTO) 0.2 % (0.0-2.0); EOSINOPHILS # (AUTO) 0.1 K/uL (0.0-0.7); EOSINOPHILS % (AUTO) 1.2 % (0.0-7.0); HEMATOCRIT 25.4 % (37-47); HEMOGLOBIN 8.6 G/DL (12.0-16.0); LYMPHOCYTES # (AUTO) 0.8 K/UL (0.8-4.8); LYMPHOCYTES % (AUTO) 7.2 % (20.5-51.5); MEAN CORPUSCULAR HEMOGLOBIN 31.8 UUG (27.0-31.0); MEAN CORPUSCULAR HGB CONC 34 g/dL (32.0-37.0); MEAN CORPUSCULAR VOLUME 93.4 FL (81.0-99.0); MONOCYTES # (AUTO) 0.5 K/UL (0.1-1.30); MONOCYTES % (AUTO) 4.4 % (0.0-11.0); NEUTROPHILS # (AUTO) 10.3 K/UL (1.8-8.9); PLATELET COUNT (AUTO) 244 K/UL (150-450); RED BLOOD CELL COUNT(AUTO) 2.72 MIL/UL (4.2-5.4); RED CELL DISTRIBUTION WIDTH 16.9 % (11.5-14.5); WHITE BLOOD COUNT (AUTO) 11.7 K/UL (4.0-11.2)
--- NOTE | 2016-07-14 06:00 | NUR ---
JOHN Piccline dressing done using aseptic technique.
[2016-07-14] MEDS: NORMAL SALINE FLUSH 10 ML DISP.SYRIN IV SCH ×3 (06:11→21:27)
[2016-07-14 06:13] LABS: ANISOCYTOSIS 1+; BAND % (MANUAL) 4 % (0-10); EOSINOPHILS % (MANUAL) 3 % (0-8); LYMPHOCYTES % (MANUAL) 15 % (20-40); MONOCYTES % (MANUAL) 7 % (2-10); NEUTROPHILS % (MANUAL) 71 % (42-75); PLATELET ESTIMATE ADEQUATE
--- NOTE | 2016-07-14 07:00 | NUR ---
Shanae both anterior and posterior, took a picture and secured in the chart. Sedation vacation done, pt was mildly restless and trying to pull his NGT tube. Addendum: 07/14/16 at 0801 by ROBERTA DIAZ RN wrong pt
--- NOTE | 2016-07-14 07:00 | NUR ---
Report to BETH Scales. Pt remained asleep, breathing normally, VS stable BP 93/61. Denies any discomfort, except when being moved-usually c/o of left leg/back.
--- NOTE | 2016-07-14 07:00 | NUR ---
Rashes both anterior and posterior, took a picture and secured in the chart
[2016-07-14] MEDS: MEROPENEM 1 G in IV NORMAL SALINE 100 ML IV SCH ×2 (07:51→08:21)
[2016-07-14] MEDS: MULTIVIT, IRON, MIN NO. 8, FA TABLET PO SCH (08:20)
[2016-07-14] MEDS: FERROUS SULFATE 325 MG TABEC PO SCH (08:20)
[2016-07-14] MEDS: OMEGA-3 FATTY ACIDS/FISH OIL CAPSULE PO SCH (08:20)
[2016-07-14] MEDS: DOCUSATE SODIUM 100 MG CAPSULE PO SCH (08:20)
[2016-07-14] MEDS: ASCORBIC ACID 500 MG TABLET PO SCH (08:20)
[2016-07-14] MEDS: FOLIC ACID 1 MG TABLET PO SCH (08:20)
[2016-07-14] MEDS: diphenhydrAMINE 25 MG CAP PO PRN ×2 (08:20→13:44)
[2016-07-14] MEDS: MUPIROCIN 2% OINT 22 GM TUBE NS SCH ×2 (08:23→21:16)
[2016-07-14] MEDS: busPIRone 10 MG TABLET PO SCH ×2 (08:25→16:51)
[2016-07-14] MEDS: MEGESTROL ACETATE 400 MG/10 ML LIQUID UDC PO SCH ×2 (08:27→21:25)
[2016-07-14] MEDS: CYCLOBENZAPRINE HCL 10 MG TABLET PO SCH ×3 (08:27→16:51)
[2016-07-14] MEDS: SODIUM CHLORIDE 1,000 MG TABLET PO SCH (08:27)
[2016-07-14] MEDS ORDERED: POTASSIUM CHLORIDE 20 MEQ TAB.PRT.SR PO ONE (08:30)
--- NOTE | 2016-07-14 08:30 | NUR ---
seen by dr crandall. orders received. Addendum: 07/14/16 at 0905 by SARA SERRANO RN Amended: Links added.
[2016-07-14] MEDS: HEPARIN SODIUM,PORCINE 5,000 UNITS/ML VIAL SQ SCH ×2 (08:43→21:26)
[2016-07-14] MEDS ORDERED: VANCOMYCIN IV 500 MG in IV DEXTROSE 5% 100 ML IV SCH (09:00)
[2016-07-14] MEDS: PHENYLEPHRINE IV 80 MG in IV DEXTROSE 5% 250 ML IV PRN (10:17)
[2016-07-14 10:25] LABS: ABG BASE EXCESS -8.9 mmol/L; ABG HCO3 15.6 mmol/L; ABG PCO2 29.1 mmHg (35.0-45.0); ABG PH 7.347 (7.350-7.450); ABG PO2 76.5 mmHg (75.0-100.0); ABG SITE RIGHT RADIAL; ABG TOTAL HEMOGLOBIN 10.5 G/dL (12.0-16.0); COHb 1.7 % (0.5-1.5); MetHb 0.1 % (0.0-1.5)
[2016-07-14] MEDS ORDERED: POTASSIUM CHLORIDE 20 MEQ POWDER PACKET PO ONE (10:30)
[2016-07-14] MEDS: MAGNESIUM SULFATE/D5W 100 ML IV SCH ×2 (10:30→11:09)
[2016-07-14] MEDS: LEVOFLOXACIN 500 MG/D5W 500 MG in PREMIXED 1 EACH IV SCH (11:12)
--- NOTE | 2016-07-14 12:45 | NUR ---
seen by dr nino. orders received Addendum: 07/14/16 at 1246 by SARA SERRANO RN Amended: Links added.
[2016-07-14] MEDS: ACYCLOVIR 200 MG CAPSULE PO SCH ×2 (13:40→16:53)
[2016-07-14] MEDS: HYDROCODONE/APAP 10-325 MG TABLET PO PRN (13:44)
[2016-07-14] MEDS: NORMAL SALINE IV SCH (16:44)
[2016-07-14] MEDS: DAPTOMYCIN IV SCH (16:44)
--- NOTE | 2016-07-14 19:00 | NUR ---
MILO report given to EstheroRN Addendum: 07/14/16 at 1931 by SARA SERRANO RN Amended: Links added.
[2016-07-14] MEDS: MONTELUKAST SODIUM 10 MG TABLET PO SCH (21:25)
[2016-07-14] MEDS: MIRTAZAPINE 15 MG TABLET PO SCH (21:25)
[2016-07-15] VITALS (43 sets, daily range): BP systolic 92–150; BP diastolic 29–100
[2016-07-15] MEDS: PHENYLEPHRINE IV 80 MG in IV DEXTROSE 5% 250 ML IV PRN (00:17)
[2016-07-15] MEDS: IV NS 1000 ML 1,000 ML IV PRN ×2 (00:18→12:18)
[2016-07-15] MEDS: MORPHINE SULFATE 2 MG/1 ML DISP.SYRIN IV PRN ×2 (00:27→22:13)
[2016-07-15 05:35] LABS: ALANINE AMINOTRANSFERASE 10 U/L (14-59); ALKALINE PHOSPHATASE 82 U/L (50-136); ASPARTATE AMINOTRANSFERASE 16 U/L (15-37); BILIRUBIN,TOTAL 0.4 mg/dL (0.2-1.0); CALCIUM 8.5 mg/dL (8.5-10.1); CHLORIDE 114 mmol/L (98-107); CREATININE 0.8 mg/dL (0.6-1.3); GFR 72 mL/min (>60); GLUCOSE 85 mg/dL (74-106); MAGNESIUM 1.8 mg/dL (1.8-2.4); PHOSPHOROUS 2.8 mg/dL (2.5-4.9); POTASSIUM 3.7 mmol/L (3.5-5.1); SODIUM SERUM 143 mmol/L (136-145); TOTAL PROTEIN, SERUM 5.9 g/dL (6.4-8.2); UREA NITROGEN, BLOOD 24 mg/dL (7-18)
[2016-07-15 05:38] LABS: ALBUMIN 1.5 g/dL (3.4-5.0); CARBON DIOXIDE 18 mmol/L (21-32); CREATINE KINASE, TOTAL < 7 U/L (26-192)
--- NOTE | 2016-07-15 06:00 | NUR ---
Alert, had a restful night. Neosynephrine drip off at 0530 and continues to maintain SBP above 90. Singing and chanting at times, speaks mostly Japanese. Maintained on contact isolation for MRSA urine and nares. Please see CCU flowsheet for assessment/clinical data and trends.
[2016-07-15 06:08] LABS: BASOPHILS % (AUTO) 0.1 % (0.0-2.0); EOSINOPHILS # (AUTO) 0.5 K/uL (0.0-0.7); EOSINOPHILS % (AUTO) 3.4 % (0.0-7.0); HEMATOCRIT 30.3 % (37-47); HEMOGLOBIN 10.5 G/DL (12.0-16.0); LYMPHOCYTES # (AUTO) 1.1 K/UL (0.8-4.8); LYMPHOCYTES % (AUTO) 8.1 % (20.5-51.5); MEAN CORPUSCULAR HEMOGLOBIN 32.3 UUG (27.0-31.0); MEAN CORPUSCULAR HGB CONC 35 g/dL (32.0-37.0); MEAN CORPUSCULAR VOLUME 93.3 FL (81.0-99.0); MONOCYTES # (AUTO) 0.7 K/UL (0.1-1.30); MONOCYTES % (AUTO) 4.9 % (0.0-11.0); NEUTROPHILS # (AUTO) 11.2 K/UL (1.8-8.9); NEUTROPHILS % (AUTO) 83.5 % (38.5-71.5); PLATELET COUNT (AUTO) 338 K/UL (150-450); RED BLOOD CELL COUNT(AUTO) 3.25 MIL/UL (4.2-5.4); RED CELL DISTRIBUTION WIDTH 17.1 % (11.5-14.5); WHITE BLOOD COUNT (AUTO) 13.5 K/UL (4.0-11.2)
[2016-07-15] MEDS: NORMAL SALINE FLUSH 10 ML DISP.SYRIN IV SCH ×3 (06:41→21:24)
[2016-07-15] MEDS ORDERED: Z GUARD REMEDY PASTE 57 GM TUBE TOP PRN (06:45)
--- NOTE | 2016-07-15 07:30 | NUR ---
RECIEVED LYING IN BED, AWAKE, ALERT, ORIENTEDX3.SBP STABLE..PT IS VERY SKINNY AND LOOKING PALE. SPEECH IS CLEAR. REPOSITION TO SIDE.
--- NOTE | 2016-07-15 07:30 | NUR ---
Received confused, mildly agitated, mumbles in Belarusian. Respiration regular non labored. Breakfast served. HOB elevated. fed slowly; no swallowing difficulty.
--- NOTE | 2016-07-15 08:20 | NUR ---
RECIEVED REPORT FROM GERA.
--- NOTE | 2016-07-15 08:30 | NUR ---
SEEN AND EXAMINED BY DR IZQUIERDO.
[2016-07-15] MEDS: FOLIC ACID 1 MG TABLET PO SCH (08:56)
[2016-07-15] MEDS: ASCORBIC ACID 500 MG TABLET PO SCH (08:56)
[2016-07-15] MEDS: OMEGA-3 FATTY ACIDS/FISH OIL CAPSULE PO SCH (08:56)
[2016-07-15] MEDS: DOCUSATE SODIUM 100 MG CAPSULE PO SCH (08:56)
[2016-07-15] MEDS: busPIRone 10 MG TABLET PO SCH ×2 (08:56→17:15)
[2016-07-15] MEDS: MULTIVIT, IRON, MIN NO. 8, FA TABLET PO SCH (08:56)
[2016-07-15] MEDS: FERROUS SULFATE 325 MG TABEC PO SCH (08:56)
[2016-07-15] MEDS: MEGESTROL ACETATE 400 MG/10 ML LIQUID UDC PO SCH ×2 (08:57→21:08)
[2016-07-15] MEDS: SODIUM CHLORIDE 1,000 MG TABLET PO SCH (08:57)
[2016-07-15] MEDS: ACYCLOVIR 200 MG CAPSULE PO SCH ×3 (08:57→17:12)
[2016-07-15] MEDS: HEPARIN SODIUM,PORCINE 5,000 UNITS/ML VIAL SQ SCH ×2 (09:01→21:09)
[2016-07-15] MEDS: Z GUARD REMEDY PASTE 57 GM TUBE TOP SCH ×2 (09:03→21:08)
[2016-07-15] MEDS: LEVOFLOXACIN 500 MG/D5W 500 MG in PREMIXED 1 EACH IV SCH (10:38)
[2016-07-15] MEDS: CYCLOBENZAPRINE HCL 10 MG TABLET PO SCH ×3 (10:39→17:12)
[2016-07-15] MEDS: MUPIROCIN 2% OINT 22 GM TUBE NS SCH ×2 (10:39→21:07)
--- NOTE | 2016-07-15 13:12 | NUR ---
WOUND CARE CONSULT: PT PRESENTS WITH VERY FRAGILE SKIN WITH SHINY SKIN TO FEET. STAGE II ULCER NOTED TO SACRAL AREA. PT IS VERY THIN AND BONY. PT NOTED TO HAVE MULTIPLE CO-MORBIDITIES INCLUDING RA, ANEMIA, SEPSIS, PNA AND RENAL FAILURE. PT NOTED TO BE MOVING IN BED AT TIMES. HYACINTH SCORE IS 14. ALL SKIN PROTECTION MEASURES HAVE BEEN IN PLACE. ALL SKIN AND WOUND RECOMMENDATIONS DISCUSSED WITH NURSING STAFF. IN AGREEMENT WITH PLAN OF CARE. Addendum: 07/15/16 at 1319 by AILYN HUBER RN Amended: Links added.
--- NOTE | 2016-07-15 14:00 | NUR ---
SEEN AND EVALUATED B THE WOUND NURSE.
[2016-07-15] MEDS: DAPTOMYCIN IV SCH (17:10)
[2016-07-15] MEDS: NORMAL SALINE IV SCH (17:10)
--- NOTE | 2016-07-15 18:00 | NUR ---
PT ATE WELL FOR DINNER. PM CARE RENDERED. CONDITION IS STABLE.
--- NOTE | 2016-07-15 20:00 | NUR ---
Awake, alert, noted disoriented to events but aware of person and place. Speaks mostly Lithuanian. Can get loud and noisy at times, calling out names which pt claims as her sons. Remains off vasopressor. Resp easy and regular on room air. Maintained on contact isolation. Tolerated HS snacks, pt is a feeder. Aspiration precautions observed at all times. Please see CCU flowsheet for full assessment and clinical data.
[2016-07-15] MEDS: MIRTAZAPINE 15 MG TABLET PO SCH (21:08)
[2016-07-15] MEDS: MONTELUKAST SODIUM 10 MG TABLET PO SCH (21:08)
--- NOTE | 2016-07-15 23:00 | NUR ---
Pt has severe arthritis, gentle handling observed at all times. Was medicated with Morphine earlier with some relief. Nursing comfort measures observed at all times.
[2016-07-16] VITALS (13 sets, daily range): BP systolic 106–139; BP diastolic 65–89
[2016-07-16] MEDS: IV NS 1000 ML 1,000 ML IV PRN ×2 (01:07→11:46)
[2016-07-16] MEDS: MORPHINE SULFATE 2 MG/1 ML DISP.SYRIN IV PRN (03:00)
[2016-07-16 05:10] LABS: BASOPHILS % (AUTO) 0.1 % (0.0-2.0); EOSINOPHILS # (AUTO) 0.3 K/uL (0.0-0.7); EOSINOPHILS % (AUTO) 3.6 % (0.0-7.0); HEMOGLOBIN 8.5 G/DL (12.0-16.0); LYMPHOCYTES # (AUTO) 1.1 K/UL (0.8-4.8); LYMPHOCYTES % (AUTO) 12.6 % (20.5-51.5); MEAN CORPUSCULAR HEMOGLOBIN 30.1 UUG (27.0-31.0); MEAN CORPUSCULAR HGB CONC 33 g/dL (32.0-37.0); MEAN CORPUSCULAR VOLUME 91.8 FL (81.0-99.0); MONOCYTES # (AUTO) 0.6 K/UL (0.1-1.30); MONOCYTES % (AUTO) 7.1 % (0.0-11.0); NEUTROPHILS # (AUTO) 6.9 K/UL (1.8-8.9); NEUTROPHILS % (AUTO) 76.6 % (38.5-71.5); PLATELET COUNT (AUTO) 249 K/UL (150-450); RED BLOOD CELL COUNT(AUTO) 2.83 MIL/UL (4.2-5.4); RED CELL DISTRIBUTION WIDTH 16.4 % (11.5-14.5); WHITE BLOOD COUNT (AUTO) 8.9 K/UL (4.0-11.2)
[2016-07-16 05:16] LABS: CALCIUM 7.9 mg/dL (8.5-10.1); CREATININE 0.6 mg/dL (0.6-1.3); MAGNESIUM 1.4 mg/dL (1.8-2.4); PHOSPHOROUS 2.6 mg/dL (2.5-4.9); POTASSIUM 3.5 mmol/L (3.5-5.1)
--- NOTE | 2016-07-16 06:00 | NUR ---
Remains stable, not needing pressor. Awake most of the night, now sleeping. No apparent acute distress noted. Please see CCU flowsheet for trends and clinical data.
[2016-07-16] MEDS: NORMAL SALINE FLUSH 10 ML DISP.SYRIN IV SCH ×3 (06:12→21:56)
--- NOTE | 2016-07-16 07:30 | NUR ---
RECIEVED PT LYING IN BED SOUND ASLEEP. AROUSABLE TO CALL. ORIENTED TO HER NAME ONLY. SPEECH IS CLEAR. AFEBRILE. HR PERSISTENTLY TACHYCARDIC IN THE 105-115B.MIN. COLOR IS PALE. PT IS THIN AND SKIN IS VERY FRAGILE.
[2016-07-16] MEDS: FOLIC ACID 1 MG TABLET PO SCH (08:05)
[2016-07-16] MEDS: FERROUS SULFATE 325 MG TABEC PO SCH (08:05)
[2016-07-16] MEDS: busPIRone 10 MG TABLET PO SCH ×2 (08:05→17:02)
[2016-07-16] MEDS: OMEGA-3 FATTY ACIDS/FISH OIL CAPSULE PO SCH (08:05)
[2016-07-16] MEDS: DOCUSATE SODIUM 100 MG CAPSULE PO SCH (08:05)
[2016-07-16] MEDS: MULTIVIT, IRON, MIN NO. 8, FA TABLET PO SCH (08:06)
[2016-07-16] MEDS: ASCORBIC ACID 500 MG TABLET PO SCH (08:06)
[2016-07-16] MEDS: MEGESTROL ACETATE 400 MG/10 ML LIQUID UDC PO SCH ×2 (08:06→20:48)
[2016-07-16] MEDS: SODIUM CHLORIDE 1,000 MG TABLET PO SCH (08:06)
[2016-07-16] MEDS: ACYCLOVIR 200 MG CAPSULE PO SCH ×3 (08:07→17:02)
[2016-07-16] MEDS: CYCLOBENZAPRINE HCL 10 MG TABLET PO SCH ×3 (08:09→17:02)
[2016-07-16] MEDS: MUPIROCIN 2% OINT 22 GM TUBE NS SCH ×2 (08:09→20:50)
[2016-07-16] MEDS: Z GUARD REMEDY PASTE 57 GM TUBE TOP SCH ×2 (08:10→20:51)
--- NOTE | 2016-07-16 08:30 | NUR ---
SEEN AND EXAMINED BY DR GIBBS WITH NEW ORDERS. OKEYED TO TRANSFER THE PT TO TELEMETRY UNIT WITH SAME ORDERS. PT ATE A LITTLE BETTER.
--- NOTE | 2016-07-16 09:00 | NUR ---
PICC LINE ON THE RUP INTACT. MAIN IVF IS NS AT 100ML/HR INFUSING WELL.
[2016-07-16] MEDS: HEPARIN SODIUM,PORCINE 5,000 UNITS/ML VIAL SQ SCH ×2 (09:44→20:53)
[2016-07-16] MEDS: LEVOFLOXACIN 500 MG/D5W 500 MG in PREMIXED 1 EACH IV SCH (09:48)
--- NOTE | 2016-07-16 11:00 | NUR ---
PATIENT RECIEVE FROM ICU IN SAFE AND STABLE CONDITIONS. NO S/S OF DISTRESS NOTED. C/O OF SLIGHT HEADACHE. IV INFUSING WELL, F/C DRAINING WELL, CLEAR YELLOW. PATIENT IS BEDBOUND CONTRACTED. CALL LIGHT WITHIN REACH. CARDIAC MONITORING ON PLACE. SINUS TACHYCARDIA, ASYMPTOMATIC. SAFETY AND COMFORT PROVIDED. WILL CONTINUE MONITORING.
--- NOTE | 2016-07-16 11:30 | NUR ---
SEEN AND EXAMINED BY DR READ WITH NEW ORDERS.
[2016-07-16] MEDS: POTASSIUM CHLORIDE 50 ML IV SCH ×2 (11:35→13:25)
--- NOTE | 2016-07-16 11:35 | NUR ---
REPORT GIVEN TO JP CAMPOS FROM 2ND FLOOR.
[2016-07-16] MEDS: MAGNESIUM SULFATE/D5W 100 ML IV SCH ×2 (11:36→13:25)
--- NOTE | 2016-07-16 11:45 | NUR ---
PT TRANSFERRED TO 212 VIA BED. CONDITION IS STABLE.
[2016-07-16] MEDS: METOPROLOL TARTRATE 25 MG TABLET PO SCH ×2 (15:51→20:49)
[2016-07-16] MEDS: DAPTOMYCIN IV SCH (18:21)
[2016-07-16] MEDS: NORMAL SALINE IV SCH (18:21)
--- NOTE | 2016-07-16 19:19 | NUR ---
PATIENT BEEN IN BED. NO S/S OF DISTRESS NOTED. PATIENT SEEMED CONFUSED, TALKING TO HERSELF MOST OF THE TIME. REPOSITIONED Q2HRS. MEDICATIONS WERE GIVEN ORDERED. F/C CLEAR AND YELLOW. ISOLATION MAINTAINED. SAFETY AND COMFORT PROVIDED. WILL CONTINUE MONITORING.
[2016-07-16] MEDS: MONTELUKAST SODIUM 10 MG TABLET PO SCH (20:49)
[2016-07-16] MEDS: MIRTAZAPINE 15 MG TABLET PO SCH (20:49)
[2016-07-17 00:01] VITALS: BP 111/48
[2016-07-17] MEDS: HYDROCODONE/APAP 10-325 MG TABLET PO PRN ×2 (03:03→21:24)
[2016-07-17 04:00] VITALS: BP 125/78
[2016-07-17] MEDS: IV NS 1000 ML 1,000 ML IV PRN (04:14)
[2016-07-17] MEDS: NORMAL SALINE FLUSH 10 ML DISP.SYRIN IV SCH ×3 (06:23→21:24)
--- NOTE | 2016-07-17 06:36 | NUR ---
PT IN BED RESTING, SLEPT INTERMITTENTLY , IN NO ACUTE SIGNS OF DISTRESS. WAS GIVEN NORCO 1 TAB FOR MARITO LEG PAIN, PT SLEPT AFTERWARDS. PT HAD BM X1, STOOL FOR OB COLLECTED, SENT TO LAB. KRUSE INTACT EMPTIED 2100 ML ANGY URINE. TURNED AND REPOSITIONED. SAFETY MAINTAINED. BED ALARM ON.
--- NOTE | 2016-07-17 06:50 | NUR ---
PT IS SINUS RHYTHYM ON TELE AT THIS TIME, AT TIMES PT GOES TO SINUS TACHY. MONITORED CLOSELY.
[2016-07-17 07:38] LABS: BASOPHILS % (AUTO) 0.2 % (0.0-2.0); EOSINOPHILS # (AUTO) 0.2 K/uL (0.0-0.7); EOSINOPHILS % (AUTO) 3.1 % (0.0-7.0); HEMATOCRIT 24.8 % (37-47); LYMPHOCYTES # (AUTO) 1.1 K/UL (0.8-4.8); LYMPHOCYTES % (AUTO) 14.7 % (20.5-51.5); MEAN CORPUSCULAR HEMOGLOBIN 29.9 UUG (27.0-31.0); MEAN CORPUSCULAR HGB CONC 32 g/dL (32.0-37.0); MEAN CORPUSCULAR VOLUME 92.8 FL (81.0-99.0); MONOCYTES # (AUTO) 0.5 K/UL (0.1-1.30); MONOCYTES % (AUTO) 6.8 % (0.0-11.0); NEUTROPHILS % (AUTO) 75.2 % (38.5-71.5); PLATELET COUNT (AUTO) 283 K/UL (150-450); RED BLOOD CELL COUNT(AUTO) 2.68 MIL/UL (4.2-5.4); RED CELL DISTRIBUTION WIDTH 16.5 % (11.5-14.5); WHITE BLOOD COUNT (AUTO) 7.8 K/UL (4.0-11.2)
[2016-07-17 07:41] LABS: BILIRUBIN,TOTAL 0.6 mg/dL (0.2-1.0); CALCIUM 7.3 mg/dL (8.5-10.1); CREATININE 0.6 mg/dL (0.6-1.3); MAGNESIUM 1.5 mg/dL (1.8-2.4); PHOSPHOROUS 2.7 mg/dL (2.5-4.9); POTASSIUM 3.7 mmol/L (3.5-5.1)
[2016-07-17 07:47] LABS: ALBUMIN 1.6 g/dL (3.4-5.0)
[2016-07-17] MEDS ORDERED: ALBUTEROL SULFATE 1.25 MG/3 ML NEBU NEB PRN (08:00)
[2016-07-17] MEDS: MUPIROCIN 2% OINT 22 GM TUBE NS SCH ×2 (08:26→21:23)
[2016-07-17] MEDS: SODIUM CHLORIDE 1,000 MG TABLET PO SCH (08:29)
[2016-07-17] MEDS: ACYCLOVIR 200 MG CAPSULE PO SCH ×3 (08:30→17:26)
[2016-07-17] MEDS: ASCORBIC ACID 500 MG TABLET PO SCH (08:30)
[2016-07-17] MEDS: OMEGA-3 FATTY ACIDS/FISH OIL CAPSULE PO SCH (08:30)
[2016-07-17] MEDS: FOLIC ACID 1 MG TABLET PO SCH (08:31)
[2016-07-17] MEDS: CYCLOBENZAPRINE HCL 10 MG TABLET PO SCH ×3 (08:31→17:26)
[2016-07-17] MEDS: DOCUSATE SODIUM 100 MG CAPSULE PO SCH (08:31)
[2016-07-17] MEDS: MEGESTROL ACETATE 400 MG/10 ML LIQUID UDC PO SCH ×2 (08:33→21:24)
[2016-07-17] MEDS: MULTIVIT, IRON, MIN NO. 8, FA TABLET PO SCH (08:33)
[2016-07-17] MEDS: FERROUS SULFATE 325 MG TABEC PO SCH (08:33)
[2016-07-17] MEDS: busPIRone 10 MG TABLET PO SCH ×2 (08:33→17:25)
[2016-07-17] MEDS: Z GUARD REMEDY PASTE 57 GM TUBE TOP SCH ×2 (08:34→21:25)
[2016-07-17] MEDS: HEPARIN SODIUM,PORCINE 5,000 UNITS/ML VIAL SQ SCH ×2 (08:35→21:25)
[2016-07-17 08:41] LABS: *OCCULT BLOOD STOOL NEGATIVE (NEGATIVE)
[2016-07-17] MEDS: METOPROLOL TARTRATE 25 MG TABLET PO SCH ×2 (09:10→21:27)
[2016-07-17 09:12] LABS: BAND % (MANUAL) 6 % (0-10); BASOPHILS % (MANUAL) 1 % (0-2); EOSINOPHILS % (MANUAL) 3 % (0-8); LYMPHOCYTES % (MANUAL) 10 % (20-40); METAMYELOCYTES % 5 % (0-1); MONOCYTES % (MANUAL) 5 % (2-10); MYELOCYTES % 3 % (0-0); NEUTROPHILS % (MANUAL) 67 % (42-75)
[2016-07-17 09:15] LABS: ANISOCYTOSIS 1+; OVALOCYTES 1+; PLATELET ESTIMATE ADEQUATE
[2016-07-17 09:39] LABS: ABG BASE EXCESS -7.7 mmol/L; ABG HCO3 16.8 mmol/L; ABG PCO2 30.9 mmHg (35.0-45.0); ABG PH 7.353 (7.350-7.450); ABG PO2 66.7 mmHg (75.0-100.0); ABG SITE LEFT RADIAL; ABG TOTAL HEMOGLOBIN 11.1 G/dL (12.0-16.0); COHb 1.5 % (0.5-1.5); MetHb 0.2 % (0.0-1.5); O2Hb 91.9 % (94.0-97.0); VENT MODE ROOM AIR
[2016-07-17] MEDS: MAGNESIUM SULFATE/D5W 100 ML IV SCH ×2 (10:49→11:15)
[2016-07-17] MEDS: POTASSIUM CHLORIDE 50 ML IV SCH ×4 (10:50→13:29)
[2016-07-17] MEDS: LEVOFLOXACIN 500 MG/D5W 500 MG in PREMIXED 1 EACH IV SCH (11:15)
[2016-07-17 11:55] LABS: A/G RATIO 0.6 (0.7-1.7); ALBUMIN 1.6 g/dL (2.9-4.4); ALPHA-1-GLOBULIN 0.3 g/dL (0.0-0.4); ALPHA-2-GLOBULIN 0.8 g/dL (0.4-1.0); BETA GLOBULIN 0.6 g/dL (0.7-1.3); GLOBULIN, TOTAL 2.7 g/dL (2.2-3.9); M-SPIKE Not Observed g/dL (Not Observed)
[2016-07-17 12:02] VITALS: BP 96/68
[2016-07-17 16:03] VITALS: BP 94/62
[2016-07-17] MEDS: DAPTOMYCIN IV SCH (17:26)
[2016-07-17] MEDS: NORMAL SALINE IV SCH (17:26)
--- NOTE | 2016-07-17 18:32 | NUR ---
PATIENT BEEN IN BED RESTING AND SLEEPING INTERMITTENTLY DURING THE AFTERNOON. NO S/S OF DISTRESS NOTES. C/O OF BACK PAIN, MEDICATED ORDERED. F/C DRAINING WELL, CLEAR YELLOW URINE. PICC LINE STILL INTACT. 1STEP MATRESS MAINTAIN. PATIENT WAS ABLE TO TO TOLERATE HER MEAL WELL, NO S/S OF ASPIRATION, NOTED. SAFETY AND COMFORT PROVIDED BY STAFF. WILL CONTINUE MONITORING.
[2016-07-17 20:00] VITALS: BP 130/84
[2016-07-17] MEDS: MIRTAZAPINE 15 MG TABLET PO SCH (21:23)
[2016-07-17] MEDS: MONTELUKAST SODIUM 10 MG TABLET PO SCH (21:23)
[2016-07-18] MEDS: IV NS 1000 ML 1,000 ML IV PRN (01:09)
[2016-07-18 04:44] VITALS: BP 117/75
[2016-07-18] MEDS: NORMAL SALINE FLUSH 10 ML DISP.SYRIN IV SCH ×2 (06:00→13:22)
[2016-07-18 07:16] LABS: CALCIUM 7.8 mg/dL (8.5-10.1); CREATININE 0.6 mg/dL (0.6-1.3); MAGNESIUM 1.7 mg/dL (1.8-2.4); POTASSIUM 4.6 mmol/L (3.5-5.1)
[2016-07-18 07:32] LABS: BASOPHILS % (AUTO) 0.1 % (0.0-2.0); EOSINOPHILS # (AUTO) 0.2 K/uL (0.0-0.7); EOSINOPHILS % (AUTO) 2.2 % (0.0-7.0); HEMATOCRIT 25.6 % (37-47); HEMOGLOBIN 8.6 G/DL (12.0-16.0); LYMPHOCYTES # (AUTO) 1.3 K/UL (0.8-4.8); LYMPHOCYTES % (AUTO) 15.2 % (20.5-51.5); MEAN CORPUSCULAR HEMOGLOBIN 31.1 UUG (27.0-31.0); MEAN CORPUSCULAR HGB CONC 34 g/dL (32.0-37.0); MEAN CORPUSCULAR VOLUME 92.7 FL (81.0-99.0); MONOCYTES # (AUTO) 0.3 K/UL (0.1-1.30); MONOCYTES % (AUTO) 3.5 % (0.0-11.0); PLATELET COUNT (AUTO) 293 K/UL (150-450); RED BLOOD CELL COUNT(AUTO) 2.76 MIL/UL (4.2-5.4); RED CELL DISTRIBUTION WIDTH 16.6 % (11.5-14.5); WHITE BLOOD COUNT (AUTO) 8.8 K/UL (4.0-11.2)
[2016-07-18] MEDS ORDERED: LEVO500T15 PO (07:33)
[2016-07-18] MEDS ORDERED: ALBU1.25 NEB (07:33)
[2016-07-18] MEDS ORDERED: Acyclovir PO (07:33)
[2016-07-18] MEDS ORDERED: DAPT500V2 IV (07:33)
[2016-07-18] MEDS ORDERED: MUPI22OI2 NS (07:33)
[2016-07-18] MEDS ORDERED: Metoprolol Tartrate PO (07:33)
[2016-07-18] MEDS: ACYCLOVIR 200 MG CAPSULE PO SCH ×2 (08:13→13:22)
[2016-07-18] MEDS: DOCUSATE SODIUM 100 MG CAPSULE PO SCH (08:13)
[2016-07-18] MEDS: CYCLOBENZAPRINE HCL 10 MG TABLET PO SCH ×2 (08:14→13:22)
[2016-07-18] MEDS: FOLIC ACID 1 MG TABLET PO SCH (08:14)
[2016-07-18] MEDS: OMEGA-3 FATTY ACIDS/FISH OIL CAPSULE PO SCH (08:14)
[2016-07-18] MEDS: SODIUM CHLORIDE 1,000 MG TABLET PO SCH (08:14)
[2016-07-18] MEDS: ASCORBIC ACID 500 MG TABLET PO SCH (08:15)
[2016-07-18] MEDS: MULTIVIT, IRON, MIN NO. 8, FA TABLET PO SCH (08:15)
[2016-07-18] MEDS: FERROUS SULFATE 325 MG TABEC PO SCH (08:15)
[2016-07-18] MEDS: busPIRone 10 MG TABLET PO SCH (08:15)
[2016-07-18] MEDS: METOPROLOL TARTRATE 25 MG TABLET PO SCH (08:17)
[2016-07-18] MEDS: MUPIROCIN 2% OINT 22 GM TUBE NS SCH (08:18)
[2016-07-18] MEDS: Z GUARD REMEDY PASTE 57 GM TUBE TOP SCH (08:18)
[2016-07-18] MEDS: HEPARIN SODIUM,PORCINE 5,000 UNITS/ML VIAL SQ SCH (08:21)
[2016-07-18] MEDS: MEGESTROL ACETATE 400 MG/10 ML LIQUID UDC PO SCH (08:21)
[2016-07-18] MEDS ORDERED: LEVOFLOXACIN 500 MG TABLET PO SCH (11:00)
[2016-07-18 11:35] VITALS: BP 107/65
[2016-07-18] MEDS ORDERED: MAGNESIUM OXIDE 400 MG TABLET PO ONE (11:45)
[2016-07-18] MEDS: HYDROCODONE/APAP 10-325 MG TABLET PO PRN (15:19)
[2016-07-18 15:27] VITALS: BP 108/71
--- NOTE | 2016-07-18 16:33 | NUR ---
Patient been in bed resting. No s/s of distress noted. C/O of having problems breathing, RR 18, O2 sat >95%. Patient been discharge to in safe and stable condition. Report was giving to BETH Ray. PT was sent with picc line to continue antibiotics, and F/C due to MRSA in urine. No oxygen require during transportation. Photos were taken and charted. Wound treatment was done before leaving. Bandon was given 45 min before transport for comfort. Discharge instructions were placed on the packet. Patient was taken by ambulance in safe condition. Safety and comfort provided during my shift. Will continue monitoring.
== END 2016-07-18 16:13 | DRG 720 ==
LOC: ER 03:25 → CCU 08:55 → MED 07-16 11:27 → TELE 07-16 11:36 → MED 07-17 15:50
PROVIDERS: ADMIT Internal Medicine; ATTEND Internal Medicine
PROC: 30233N1 Transfusion of Nonautologous Red Blood Cells into Peripheral Vein, Percutaneous Approach (ICD-10-PCS; principal; 2016-07-11)
PROC: 02HV33Z Insertion of Infusion Device into Superior Vena Cava, Percutaneous Approach (ICD-10-PCS; 2016-07-12)
DX: A41.9 Sepsis, unspecified organism (principal); N17.0 Acute kidney failure with tubular necrosis; E43 Unspecified severe protein-calorie malnutrition; R65.21 Severe sepsis with septic shock; G92 Toxic encephalopathy; E87.2 Acidosis; J18.9 Pneumonia, unspecified organism; J90 Pleural effusion, not elsewhere classified; F03.90 Unspecified dementia, unspecified severity, without behavioral disturbance, psychotic disturbance, mood disturbance, and anxiety; I48.91 Unspecified atrial fibrillation; I47.1 Supraventricular tachycardia; I12.9 Hypertensive chronic kidney disease with stage 1 through stage 4 chronic kidney disease, or unspecified chronic kidney disease; N18.9 Chronic kidney disease, unspecified; M06.9 Rheumatoid arthritis, unspecified; N39.0 Urinary tract infection, site not specified; E87.5 Hyperkalemia; E86.9 Volume depletion, unspecified; D64.9 Anemia, unspecified; E87.6 Hypokalemia; I48.0 Paroxysmal atrial fibrillation; I51.7 Cardiomegaly; I70.0 Atherosclerosis of aorta; B96.20 Unspecified Escherichia coli [E. coli] as the cause of diseases classified elsewhere; J45.909 Unspecified asthma, uncomplicated; J98.11 Atelectasis; K80.00 Calculus of gallbladder with acute cholecystitis without obstruction; M19.90 Unspecified osteoarthritis, unspecified site; Z88.5 Allergy status to narcotic agent; J44.0 Chronic obstructive pulmonary disease with (acute) lower respiratory infection; B00.1 Herpesviral vesicular dermatitis; Z22.322 Carrier or suspected carrier of Methicillin resistant Staphylococcus aureus; Z87.440 Personal history of urinary (tract) infections; Z79.899 Other long term (current) drug therapy
CPT/HCPCS: 36415; 36600; 70030-TC; 71010; 76700; 82785; 83550; 83605; 83735; 83970; 84100; 84155; 84156; 84165; 84300; 85025; 85730; 86850; 86900; 86901; 86920; 87040; 87077; 87086; 92506; 93005; 93307; A4663; A9150; J0878; J1644; J1815; J1956; J2185; J2270; J2370; J2543; J3370; J3475; J3480; J3490; J7030; J7050; J7060; J8999; P9016-BL; P9021; Q0163

== ENCOUNTER 2016-08-21 20:53 | Inpatient (IN) | payer MEDICAID, MEDICARE ==
[~2016-08-21] VITALS: Ht 172.7 cm; Wt 36.3 kg
[~2016-08-21 20:53] MED LIST changes: +ALBU1.25 NEB; +Acyclovir PO; +DAPT500V2 IV; +DOCU-141 PO; -DOCU-25 PO; +LEVO500T2 PO; -LISI-607 PO; -MAGN400O4 PO; +MAGN400O6 PO; +MEGE400O PO; +MUPI22OI2 NS; +Metoprolol Tartrate PO; -PIPE2.254 IV
--- NOTE | 2016-08-21 21:30 | NUR ---
Pt dona from [facility] facility to be evaluated for urosepsis. Pt placed on monitor, ST. Pt recent PNA. Pt tachypnic but resp even and unlabored. Crackles noted to bases and pt has non productive congested cough. Pt maintaining O2 sats > 95% on RA. Pt has pos bowel sounds. Pt arrived with good in place. Yellow urine with sediment draining to gravity. Pt c/o back pain and bilat leg pain. Heel protectors on both feet noted, skin intact and no break down to feet noted. Pt has sore to saccrum, drsg from facility clean, dry and intact. Pt resting in position of comfort for self. Awaiting further eval.
[2016-08-21] MEDS ORDERED: SODI1TAB3 PO (22:27)
[2016-08-21] MEDS ORDERED: PRO HEAL PO (22:27)
[2016-08-21] MEDS ORDERED: ZINC220C8 PO (22:27)
[2016-08-21] MEDS ORDERED: MULT1TAB11 PO (22:27)
[2016-08-21] MEDS ORDERED: ASCO500T9 PO (22:27)
[2016-08-21] MEDS ORDERED: METO25TA6 PO (22:27)
[2016-08-21] MEDS ORDERED: HYDR-552 PO (22:27)
[2016-08-21 22:31] LABS: BASOPHILS # (AUTO) 0.1 K/uL (0.0-8.0); BASOPHILS % (AUTO) 0.3 % (0.0-2.0); BILIRUBIN,DIRECT 0.2 mg/dL (0.0-0.2); BILIRUBIN,TOTAL 0.4 mg/dL (0.2-1.0); CREATININE 0.9 mg/dL (0.6-1.3); EOSINOPHILS # (AUTO) 0.2 K/uL (0.0-0.7); EOSINOPHILS % (AUTO) 1.3 % (0.0-7.0); HEMATOCRIT 28.1 % (37-47); HEMOGLOBIN 9.2 G/DL (12.0-16.0); LYMPHOCYTES # (AUTO) 1.2 K/UL (0.8-4.8); LYMPHOCYTES % (AUTO) 6.3 % (20.5-51.5); MEAN CORPUSCULAR HEMOGLOBIN 30.2 UUG (27.0-31.0); MEAN CORPUSCULAR HGB CONC 33 g/dL (32.0-37.0); MONOCYTES # (AUTO) 0.4 K/UL (0.1-1.30); MONOCYTES % (AUTO) 2.1 % (0.0-11.0); NEUTROPHILS # (AUTO) 16.4 K/UL (1.8-8.9); PLATELET COUNT (AUTO) 656 K/UL (150-450); RED BLOOD CELL COUNT(AUTO) 3.05 MIL/UL (4.2-5.4); TOTAL PROTEIN, SERUM 7.9 g/dL (6.4-8.2); WHITE BLOOD COUNT (AUTO) 18.3 K/UL (4.0-11.2)
[2016-08-21 22:42] LABS: NEUTROPHILS % (MANUAL) 78 % (42-75)
[2016-08-21 22:43] LABS: BAND % (MANUAL) 9 % (0-10); LYMPHOCYTES % (MANUAL) 10 % (20-40); MONOCYTES % (MANUAL) 3 % (2-10)
--- NOTE | 2016-08-21 23:40 | NUR ---
Pt seen by . EKG obtained. Labs drawn and sent. IV established. Good pt arrived with dc'd and new good inserted. Pt repositioned for comfort.
[2016-08-22 00:12] LABS: *BILIRUBIN,URIN NEGATIVE (NEGATIVE); *BLOOD, URINE 3+ (NEGATIVE); *CLARITY,URINE TURBID (CLEAR); *KETONES,URINE NEGATIVE (NEGATIVE); *PROTEIN,URINE 2+ (NEGATIVE); LEUKOCYTE ESTERASE ,URINE 2+ (NEGATIVE); NITRITE, URINE NEGATIVE (NEGATIVE); UGLUCOSE NEGATIVE (NEGATIVE)
[2016-08-22 00:15] LABS: *COLOR,URINE BLOODY (YELLOW)
[2016-08-22 00:17] LABS: BACTERIA,URINE NONE SEEN /HPF (NONE SEEN); RBC,URINE TNTC /HPF (0-3); SQUAMOUS EPITHELIAL CELL,UR MODERATE /HPF (NONE SEEN)
[2016-08-22] MEDS ORDERED: ONDANSETRON 4 MG/2 ML VIAL IV ONE (00:30)
[2016-08-22] MEDS ORDERED: MORPHINE SULFATE 2 MG/1 ML DISP.SYRIN IV ONE (00:30)
[2016-08-22] MEDS ORDERED: PIPERACILLIN SODIUM/TAZOBACTAM 3.375 G in IV DEXTROSE 5% 50 ML IV ONE (00:30)
[2016-08-22] MEDS ORDERED: IV NORMAL SALINE 1000 ML BAG IV ONE (00:45)
[2016-08-22] MEDS ORDERED: MORPHINE SULFATE 2 MG/1 ML DISP.SYRIN ONE (01:03)
[2016-08-22] MEDS ORDERED: ONDANSETRON 4 MG/2 ML VIAL ONE (01:04)
[2016-08-22] MEDS ORDERED: PIPERACILLIN/TAZOBACTAM/D5W 50 ML IV ONE (01:04)
--- NOTE | 2016-08-22 01:07 | NUR ---
Pt c/o low back pain and sacrum pain. MD notified and pt medicated. Will monitor for effects of medication. Pt also repositioned for comfort. ABT infusion started, will monitor for any adverse reactions. Fluid bolus infusing freely to gravity.
[2016-08-22] MEDS ORDERED: INSULIN REGULAR, HUMAN 300 UNIT/3 ML VIAL IV ONE (01:30)
[2016-08-22] MEDS ORDERED: ALBUTEROL SULFATE 2.5 MG/3 ML NEBU NEB ONE (01:30)
[2016-08-22] MEDS ORDERED: DEXTROSE 50% 50 ML DISP.SYRIN IV ONE (01:30)
[2016-08-22] MEDS ORDERED: SODIUM POLYSTYRENE SULFONATE 15 G/60 ML LIQUID UDC PO ONE (01:30)
[2016-08-22] MEDS ORDERED: ALBUTEROL SULFATE 2.5 MG/3 ML NEBU ONE (01:58)
--- NOTE | 2016-08-22 02:00 | NUR ---
ABT infusion completed, no adverse reactions noted at this time. Pt resting in position of comfort for self. Admission pending.
[2016-08-22] MEDS ORDERED: SODIUM POLYSTYRENE SULFONATE 15 G/60 ML LIQUID UDC ONE (03:12)
[2016-08-22] MEDS ORDERED: DEXTROSE 50% 50 ML DISP.SYRIN ONE (03:12)
[2016-08-22] MEDS ORDERED: INSULIN REGULAR, HUMAN 300 UNIT/3 ML VIAL ONE (03:13)
--- NOTE | 2016-08-22 03:42 | NUR ---
While medicating pt for elevated potassium, IV infilitrated. New IV established. Pt medicated. Pt to be admitted to room 210. Report called to SANJUANITA Blue. Preparing to transfer pt to the floor
[2016-08-22 04:00] VITALS: BP 109/59
--- NOTE | 2016-08-22 04:15 | NUR ---
RECEIVED PATIENT VIA [facility] FROM ER. PATIENT IS ALERT TO SELF. SACRAL WOUND NOTED, PICTURES TAKEN AND PLACED IN CHART. PATIENT CAME WITH PERSONAL HEEL PROTECTORS. REMOVED AND BILATERAL HEELS CHECKED, NO REDNESS NOTED, SKIN INTACT. PATIENT PLACED ON TELE ORDER ST. PATIENT IS SHAKING, C/O "BEING COLD". VSS, AFEBRILE, NO TEMPERATURE NOTED. RECEIVED ORDERS FROM ER, VIA DR. WEST, NOTED AND CARRIED OUT. F/C INTACT AND DRAINING WELL. NO S/S OF PAIN OR DISCOMFORT. NO RESP. DISTRESS NOTED. BED ALARM ON. CALL LIGHT IN REACH. ALL NEEDS ATTENDED. WILL CONTINUE TO MONITOR.
[2016-08-22] MEDS: IV D5/ 0.9% NACL 1,000 ML IV PRN ×2 (04:55→22:57)
--- NOTE | 2016-08-22 06:53 | NUR ---
PATIENT ASLEEP IN BED. IVF INFUSING WELL TO LEFT FA. ON TELE ST 102. ALL OTHER VSS. BED ALARM ON,. REPOSITIONED TO SIDE. CALL LIGHT IN REACH. ALL NEEDS ATTENDED.
[2016-08-22 07:05] LABS: BILIRUBIN,TOTAL 0.4 mg/dL (0.2-1.0); TOTAL PROTEIN, SERUM 6.9 g/dL (6.4-8.2)
[2016-08-22 07:25] LABS: BASOPHILS % (AUTO) 0.1 % (0.0-2.0); EOSINOPHILS # (AUTO) 0.1 K/uL (0.0-0.7); EOSINOPHILS % (AUTO) 0.7 % (0.0-7.0); HEMOGLOBIN 8.1 G/DL (12.0-16.0); LYMPHOCYTES # (AUTO) 0.9 K/UL (0.8-4.8); MEAN CORPUSCULAR HGB CONC 33 g/dL (32.0-37.0); MEAN CORPUSCULAR VOLUME 94.2 FL (81.0-99.0); MONOCYTES # (AUTO) 1.2 K/UL (0.1-1.30); MONOCYTES % (AUTO) 6.3 % (0.0-11.0); NEUTROPHILS # (AUTO) 16.8 K/UL (1.8-8.9); NEUTROPHILS % (AUTO) 87.9 % (38.5-71.5); PLATELET COUNT (AUTO) 599 K/UL (150-450)
[2016-08-22 07:49] LABS: HEMATOCRIT 24.8 % (37-47); RED BLOOD CELL COUNT(AUTO) 2.67 MIL/UL (4.2-5.4)
--- NOTE | 2016-08-22 09:57 | NUR ---
Patient taken downstairs for surgery with daughter and family.
[2016-08-22] MEDS: HYDROCODONE/APAP 10-325 MG TABLET PO SCH (10:00)
[2016-08-22] MEDS: ASCORBIC ACID 500 MG TABLET PO SCH (10:00)
[2016-08-22] MEDS: MULTIVIT, IRON, MIN NO. 8, FA TABLET PO SCH (10:00)
[2016-08-22] MEDS: FERROUS SULFATE 325 MG TABEC PO SCH (10:00)
[2016-08-22] MEDS ORDERED: FLEET ENEMA 133 ML BOTTLE RC PRN (10:00)
[2016-08-22] MEDS: MEGESTROL ACETATE 400 MG/10 ML LIQUID UDC PO SCH ×2 (10:00→18:25)
[2016-08-22] MEDS: DOCUSATE SODIUM 100 MG CAPSULE PO SCH (10:00)
[2016-08-22] MEDS ORDERED: CRANBERRY FRUIT PO SCH (10:00)
[2016-08-22] MEDS: OMEGA-3 FATTY ACIDS/FISH OIL CAPSULE PO SCH (10:00)
[2016-08-22] MEDS: FOLIC ACID 1 MG TABLET PO SCH (10:00)
[2016-08-22] MEDS ORDERED: MAGNESIUM HYDROXIDE 30 ML LIQUID UDC PO PRN (10:00)
[2016-08-22] MEDS ORDERED: ACETAMINOPHEN 325 MG TABLET PO PRN (10:00)
[2016-08-22] MEDS ORDERED: BISACODYL 10 MG SUPP.RECT RC PRN (10:00)
[2016-08-22] MEDS ORDERED: LOPERAMIDE HCL 2 MG CAPSULE PO PRN (10:00)
[2016-08-22] MEDS ORDERED: ZINC OXIDE OINT 30 GM TUBE TOP PRN (10:00)
[2016-08-22] MEDS ORDERED: PRO HEAL PO SCH (10:00)
[2016-08-22] MEDS: ZINC SULFATE 220 MG CAPSULE PO SCH (10:00)
[2016-08-22] MEDS: METOPROLOL TARTRATE 25 MG TABLET PO SCH ×2 (10:00→21:00)
[2016-08-22] MEDS: CYCLOBENZAPRINE HCL 10 MG TABLET PO SCH ×4 (10:00→18:25)
[2016-08-22] MEDS ORDERED: ALBUTEROL SULFATE 1.25 MG/3 ML NEBU NEB PRN (10:30)
[2016-08-22 11:05] LABS: BAND % (MANUAL) 8 % (0-10); LYMPHOCYTES % (MANUAL) 6 % (20-40); METAMYELOCYTES % 1 % (0-1); MONOCYTES % (MANUAL) 7 % (2-10); NEUTROPHILS % (MANUAL) 78 % (42-75)
[2016-08-22] MEDS: SODIUM CHLORIDE 1,000 MG TABLET PO SCH (11:12)
[2016-08-22] MEDS: busPIRone 5 MG TABLET PO SCH ×2 (11:17→18:25)
[2016-08-22] MEDS: CEFTRIAXONE 1 G in IV DEXTROSE 5% 50 ML IV SCH (11:26)
[2016-08-22 11:36] VITALS: BP 91/60
--- NOTE | 2016-08-22 15:00 | NUR ---
[facility] paged in regard to patient low BP, 94/59. Patient is asymptomatic. Denies being dizzy or feeling malaise. Patient remains on IV fluids. Will continue to monitor patient.
[2016-08-22 15:56] VITALS: BP 92/58
--- NOTE | 2016-08-22 19:10 | NUR ---
Bedside reporting with SANJUANITA Galvin. Sleeping during initial rounds. No s/s of respiratory distress noted. IVF infusing well. No s/s of infiltration noted. F/C intact draining clear cristian urine at bedside. Heel protector in used on both heels. Sacral dressing dry and intact. Continue to monitor.
[2016-08-22 20:00] VITALS: BP 91/56
[2016-08-22] MEDS: MIRTAZAPINE 15 MG TABLET PO SCH (21:18)
[2016-08-22] MEDS: MONTELUKAST SODIUM 10 MG TABLET PO SCH (21:18)
[2016-08-22] MEDS: diphenhydrAMINE 25 MG CAP PO PRN (21:19)
[2016-08-23 04:00] VITALS: BP 110/66
--- NOTE | 2016-08-23 05:40 | NUR ---
Complete bed bath given, fairly tolerated the procedure. wound care done as needed and ordered. Pt very confused and disoriented. Slept in between care. All needs attended and met. Safety measure and fall precaution maintained. No significant event reported all night. Continue care as planned.
[2016-08-23 07:00] LABS: BASOPHILS % (AUTO) 0.2 % (0.0-2.0); EOSINOPHILS # (AUTO) 0.2 K/uL (0.0-0.7); EOSINOPHILS % (AUTO) 1.1 % (0.0-7.0); HEMATOCRIT 24.7 % (37-47); HEMOGLOBIN 8.3 G/DL (12.0-16.0); LYMPHOCYTES # (AUTO) 0.9 K/UL (0.8-4.8); LYMPHOCYTES % (AUTO) 5.9 % (20.5-51.5); MEAN CORPUSCULAR HEMOGLOBIN 30.9 UUG (27.0-31.0); MEAN CORPUSCULAR HGB CONC 34 g/dL (32.0-37.0); MEAN CORPUSCULAR VOLUME 92.3 FL (81.0-99.0); MONOCYTES # (AUTO) 0.9 K/UL (0.1-1.30); MONOCYTES % (AUTO) 5.9 % (0.0-11.0); NEUTROPHILS # (AUTO) 13.2 K/UL (1.8-8.9); NEUTROPHILS % (AUTO) 86.9 % (38.5-71.5); PLATELET COUNT (AUTO) 560 K/UL (150-450); RED BLOOD CELL COUNT(AUTO) 2.68 MIL/UL (4.2-5.4); WHITE BLOOD COUNT (AUTO) 15.2 K/UL (4.0-11.2)
[2016-08-23 07:27] LABS: CREATININE 0.8 mg/dL (0.6-1.3); MAGNESIUM 1.5 mg/dL (1.8-2.4); PHOSPHOROUS 3.7 mg/dL (2.5-4.9); POTASSIUM 3.7 mmol/L (3.5-5.1)
[2016-08-23] MEDS: busPIRone 5 MG TABLET PO SCH ×2 (08:59→16:36)
[2016-08-23] MEDS: METOPROLOL TARTRATE 25 MG TABLET PO SCH ×2 (09:00→20:59)
[2016-08-23] MEDS: DOCUSATE SODIUM 100 MG CAPSULE PO SCH (09:00)
[2016-08-23] MEDS: HYDROCODONE/APAP 10-325 MG TABLET PO SCH (09:00)
[2016-08-23] MEDS: ASCORBIC ACID 500 MG TABLET PO SCH (09:01)
[2016-08-23] MEDS: CYCLOBENZAPRINE HCL 10 MG TABLET PO SCH ×3 (09:01→16:36)
[2016-08-23] MEDS: OMEGA-3 FATTY ACIDS/FISH OIL CAPSULE PO SCH (09:01)
[2016-08-23] MEDS: FOLIC ACID 1 MG TABLET PO SCH (09:01)
[2016-08-23] MEDS: FERROUS SULFATE 325 MG TABEC PO SCH (09:01)
[2016-08-23] MEDS: MULTIVIT, IRON, MIN NO. 8, FA TABLET PO SCH (09:02)
[2016-08-23] MEDS: SODIUM CHLORIDE 1,000 MG TABLET PO SCH (09:02)
[2016-08-23] MEDS: ZINC SULFATE 220 MG CAPSULE PO SCH (09:02)
[2016-08-23] MEDS: MEGESTROL ACETATE 400 MG/10 ML LIQUID UDC PO SCH ×2 (09:02→16:36)
[2016-08-23] MEDS: CEFTRIAXONE 1 G in IV DEXTROSE 5% 50 ML IV SCH (09:03)
[2016-08-23] MEDS ORDERED: MAGNESIUM SULFATE/D5W 200 ML ONE (10:14)
[2016-08-23] MEDS: MAGNESIUM SULFATE/D5W 100 ML IV SCH ×2 (10:17→11:39)
[2016-08-23 12:25] VITALS: BP 89/60
[2016-08-23 13:43] VITALS: BP 93/59
[2016-08-23] MEDS: IV D5/ 0.9% NACL 1,000 ML IV PRN (13:44)
[2016-08-23] MEDS ORDERED: IV NS 1000 ML 1,000 ML IV ONE (14:15)
--- NOTE | 2016-08-23 14:16 | NUR ---
PT'S B/P IS 84/54, HR 95-99. REPORTED TO DR. WEST. PER DR. WEST "NS 1L WIDE OPEN".
[2016-08-23 16:19] VITALS: BP 99/60
--- NOTE | 2016-08-23 19:39 | NUR ---
NO CHANGES NOTED. PT IS COMFORTABLY LAYING IN BED. NO S/S OF RESPIRATORY DISTRESS NOTED. ALL SAFETY NEEDS ARE MET. IV INTACT/PATENT.
[2016-08-23 20:09] VITALS: BP 96/63
[2016-08-23] MEDS: MONTELUKAST SODIUM 10 MG TABLET PO SCH (20:59)
[2016-08-23] MEDS: MIRTAZAPINE 15 MG TABLET PO SCH (21:00)
--- NOTE | 2016-08-23 21:30 | NUR ---
BP meds held for now due low blood pressure. Patient alert & oriented, c/o headache. Tylenol 650 mg po was given. Good result noted. Tele sinus rhythm 90s
--- NOTE | 2016-08-24 | NUR ---
Repositioned for comfort, no significant change. Tele sinus tach sinus rhythm.
[2016-08-24 00:28] VITALS: BP 93/61
[2016-08-24] MEDS: IV D5/ 0.9% NACL 1,000 ML IV PRN ×2 (03:39→21:59)
[2016-08-24 04:00] VITALS: BP 100/59
[2016-08-24] MEDS: HYDROCODONE/APAP 10-325 MG TABLET PO SCH ×2 (05:36→08:19)
--- NOTE | 2016-08-24 06:00 | NUR ---
PT TALKING INAPPROPRIATELY BUT KNOWS NAME, RO GIVEN CLOSELY MONITORED. NO REACTION OBSERVED FROM IV ANTIBIOTICS FOR UTI
--- NOTE | 2016-08-24 06:52 | NUR ---
Complaining of gen. pain 9/10 pain level. [place] 1 tab p.o was given. Kept comfortable. Tele shows Sinus rhythm.
[2016-08-24] MEDS: OMEGA-3 FATTY ACIDS/FISH OIL CAPSULE PO SCH (08:16)
[2016-08-24] MEDS: busPIRone 5 MG TABLET PO SCH ×2 (08:16→16:41)
[2016-08-24] MEDS: CEFTRIAXONE 1 G in IV DEXTROSE 5% 50 ML IV SCH (08:16)
[2016-08-24] MEDS: ZINC SULFATE 220 MG CAPSULE PO SCH (08:17)
[2016-08-24] MEDS: FOLIC ACID 1 MG TABLET PO SCH (08:17)
[2016-08-24] MEDS: FERROUS SULFATE 325 MG TABEC PO SCH (08:17)
[2016-08-24] MEDS: MULTIVIT, IRON, MIN NO. 8, FA TABLET PO SCH (08:17)
[2016-08-24] MEDS: diphenhydrAMINE 25 MG CAP PO PRN (08:17)
[2016-08-24] MEDS: METOPROLOL TARTRATE 25 MG TABLET PO SCH ×2 (08:17→21:54)
[2016-08-24] MEDS: ASCORBIC ACID 500 MG TABLET PO SCH (08:17)
[2016-08-24] MEDS: SODIUM CHLORIDE 1,000 MG TABLET PO SCH (08:17)
[2016-08-24] MEDS: MEGESTROL ACETATE 400 MG/10 ML LIQUID UDC PO SCH ×2 (08:17→16:41)
[2016-08-24] MEDS: DOCUSATE SODIUM 100 MG CAPSULE PO SCH (08:18)
[2016-08-24] MEDS: CYCLOBENZAPRINE HCL 10 MG TABLET PO SCH ×3 (08:19→16:41)
[2016-08-24 11:42] VITALS: BP 104/67
--- NOTE | 2016-08-24 12:00 | NUR ---
RESTING WITH EYES CLOSE, NO SIGNS OF DISTRESS. SEEN AND EVAL BY PHYSICAL THERAPIST SEE NOTES
[2016-08-24 15:43] VITALS: BP 117/81
--- NOTE | 2016-08-24 16:04 | NUR ---
CONTINUE TO MONITOR FOR SAFETY, CONSTANTLY TALKING AND SINGING INAPPROPRIATELY IN SPITE OF MEDICATION
[2016-08-24 20:00] VITALS: BP 106/60
[2016-08-24] MEDS: MONTELUKAST SODIUM 10 MG TABLET PO SCH (21:07)
[2016-08-24] MEDS: MIRTAZAPINE 15 MG TABLET PO SCH (21:08)
[2016-08-24] MEDS: HYDROCODONE/APAP 5-325MG TABLET PO PRN (21:54)
--- NOTE | 2016-08-24 22:19 | NUR ---
Seen by stereotyper Dr. Herrera, Tele D/Cd. Patient is crying at this time requesting pain meds., complaining of upper ext discomfort. Vital signs are WNL. Medicated w/ [place] 1tab & monitored. Infiltrated left forearm IV noted, & d/cd. Patient is hard stick.
--- NOTE | 2016-08-24 23:00 | NUR ---
Quiet at this time, no pain complaint. Repositioned in bed.
--- NOTE | 2016-08-25 04:00 | NUR ---
Inserted new IV line on her right upper arm w/ [id number]. IVF maintained.
[2016-08-25 06:32] VITALS: BP 113/77
--- NOTE | 2016-08-25 07:15 | NUR ---
RECEIVED REPORT FROM WARRANTY MANAGER NURSE, BED IN LOW POSITION, SIDE RAILS UP X2, BED ALARM ON.
[2016-08-25] MEDS: MEGESTROL ACETATE 400 MG/10 ML LIQUID UDC PO SCH ×2 (08:51→17:27)
[2016-08-25] MEDS: DOCUSATE SODIUM 100 MG CAPSULE PO SCH (08:51)
[2016-08-25] MEDS: ASCORBIC ACID 500 MG TABLET PO SCH (08:52)
[2016-08-25] MEDS: FERROUS SULFATE 325 MG TABEC PO SCH (08:52)
[2016-08-25] MEDS: HYDROCODONE/APAP 10-325 MG TABLET PO SCH (08:53)
[2016-08-25] MEDS: ZINC SULFATE 220 MG CAPSULE PO SCH (08:53)
[2016-08-25] MEDS: SODIUM CHLORIDE 1,000 MG TABLET PO SCH (08:53)
[2016-08-25] MEDS: CYCLOBENZAPRINE HCL 10 MG TABLET PO SCH ×3 (08:54→17:27)
[2016-08-25] MEDS: busPIRone 5 MG TABLET PO SCH ×2 (08:54→17:27)
[2016-08-25] MEDS: MULTIVIT, IRON, MIN NO. 8, FA TABLET PO SCH (08:54)
[2016-08-25] MEDS: FOLIC ACID 1 MG TABLET PO SCH (08:55)
[2016-08-25] MEDS: METOPROLOL TARTRATE 25 MG TABLET PO SCH ×2 (08:55→21:00)
[2016-08-25] MEDS: OMEGA-3 FATTY ACIDS/FISH OIL CAPSULE PO SCH (09:00)
[2016-08-25] MEDS: CEFTRIAXONE 1 G in IV DEXTROSE 5% 50 ML IV SCH (09:07)
[2016-08-25 11:52] VITALS: BP 95/56
--- NOTE | 2016-08-25 11:55 | NUR ---
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 PT IS CACHECTIC. PT ON FIRST STEP MATTRESS. ALL SKIN PROTECTION AND WOUND RECOMMENDATIONS DISCUSSED WITH NURSING STAFF. RECOMMEND MOISTURIZING CREAM FOR DRY FLAKY SKIN ON LEGS. IN AGREEMENT WITH PLAN OF CARE. Addendum: 08/25/16 at 1157 by AILYN HUBER RN Amended: Links added.
[2016-08-25] MEDS ORDERED: MINERAL OIL/PETROLATUM,WHITE 57 GM TUBE TOP PRN (12:00)
[2016-08-25 15:51] VITALS: BP 105/57
--- NOTE | 2016-08-25 15:51 | NUR ---
PATIENT HAS BEEN LAYING IN BED TALKING TO HER SURROUNDINGS THROUGHOUT THE DAY. SHE IS COOPERATIVE, AND EXPERIENCING PAIN IN EXTREMITIES AND BACK. PATIENT WAS SEEN BY WOUND CARE NURSE, AND INSTRUCTED TO CONTINUE WITH MEPILEX AND HYDROGEL.
--- NOTE | 2016-08-25 18:28 | NUR ---
PATIENT IN BED, CALM/COOPERATIVE, BED IN LOW POSITION, SIDE RAILS UP X2, BED ALARM ON.
--- NOTE | 2016-08-25 19:00 | NUR ---
Bedside reporting with Monique. Patient sleeping comfortably. No s/s of pain/discomforts noted. Safety measure and fall precaution maintain. Continue care as planned.
[2016-08-25 20:00] VITALS: BP 92/68
[2016-08-25] MEDS: MIRTAZAPINE 15 MG TABLET PO SCH (21:23)
[2016-08-25] MEDS: MONTELUKAST SODIUM 10 MG TABLET PO SCH (21:23)
--- NOTE | 2016-08-25 23:15 | NUR ---
Awakened, confused and disoriented. Reorientation done.
[2016-08-26] MEDS: diphenhydrAMINE 25 MG CAP PO PRN (01:51)
[2016-08-26 05:23] VITALS: BP 120/92
--- NOTE | 2016-08-26 06:12 | NUR ---
Slept well. No complaint presented all night. Wound care done as ordered and needed Fairly tolerated procedure. Safety measure and fall precaution maintained. No significant event reported all night. Continue care as planned.
--- NOTE | 2016-08-26 07:26 | NUR ---
Bedside reporting with BETH Bethea
[2016-08-26] MEDS ORDERED: CEFT1FRO2 IV (07:50)
[2016-08-26] MEDS: OMEGA-3 FATTY ACIDS/FISH OIL CAPSULE PO SCH (09:00)
[2016-08-26 09:15] LABS: BILIRUBIN,TOTAL 0.4 mg/dL (0.2-1.0); CREATININE 0.7 mg/dL (0.6-1.3); MAGNESIUM 1.6 mg/dL (1.8-2.4); PHOSPHOROUS 3.4 mg/dL (2.5-4.9); POTASSIUM 3.9 mmol/L (3.5-5.1); TOTAL PROTEIN, SERUM 6.9 g/dL (6.4-8.2)
[2016-08-26 09:41] LABS: BASOPHILS # (AUTO) 0.1 K/uL (0.0-8.0); BASOPHILS % (AUTO) 0.6 % (0.0-2.0); EOSINOPHILS # (AUTO) 0.1 K/uL (0.0-0.7); EOSINOPHILS % (AUTO) 1.4 % (0.0-7.0); HEMATOCRIT 24.4 % (37-47); LYMPHOCYTES # (AUTO) 1.2 K/UL (0.8-4.8); LYMPHOCYTES % (AUTO) 12.1 % (20.5-51.5); MEAN CORPUSCULAR HEMOGLOBIN 28.9 UUG (27.0-31.0); MEAN CORPUSCULAR HGB CONC 31 g/dL (32.0-37.0); MEAN CORPUSCULAR VOLUME 92.2 FL (81.0-99.0); MONOCYTES # (AUTO) 0.6 K/UL (0.1-1.30); MONOCYTES % (AUTO) 6.1 % (0.0-11.0); NEUTROPHILS # (AUTO) 7.8 K/UL (1.8-8.9); NEUTROPHILS % (AUTO) 79.8 % (38.5-71.5); PLATELET COUNT (AUTO) 588 K/UL (150-450); RED BLOOD CELL COUNT(AUTO) 2.64 MIL/UL (4.2-5.4); WHITE BLOOD COUNT (AUTO) 9.8 K/UL (4.0-11.2)
[2016-08-26 09:46] LABS: HEMOGLOBIN 7.6 G/DL (12.0-16.0)
[2016-08-26] MEDS: ZINC SULFATE 220 MG CAPSULE PO SCH (09:49)
[2016-08-26] MEDS: SODIUM CHLORIDE 1,000 MG TABLET PO SCH (09:49)
[2016-08-26] MEDS: MULTIVIT, IRON, MIN NO. 8, FA TABLET PO SCH (09:50)
[2016-08-26] MEDS: ASCORBIC ACID 500 MG TABLET PO SCH (09:50)
[2016-08-26] MEDS: FOLIC ACID 1 MG TABLET PO SCH (09:51)
[2016-08-26] MEDS: FERROUS SULFATE 325 MG TABEC PO SCH (09:51)
[2016-08-26] MEDS: MEGESTROL ACETATE 400 MG/10 ML LIQUID UDC PO SCH ×2 (09:51→16:18)
[2016-08-26] MEDS: busPIRone 5 MG TABLET PO SCH ×2 (09:52→16:17)
[2016-08-26] MEDS: CYCLOBENZAPRINE HCL 10 MG TABLET PO SCH ×3 (09:52→16:18)
[2016-08-26] MEDS: HYDROCODONE/APAP 10-325 MG TABLET PO SCH (09:53)
[2016-08-26] MEDS: DOCUSATE SODIUM 100 MG CAPSULE PO SCH (09:53)
[2016-08-26] MEDS: CEFTRIAXONE 1 G in IV DEXTROSE 5% 50 ML IV SCH (09:58)
[2016-08-26] MEDS: METOPROLOL TARTRATE 25 MG TABLET PO SCH (10:01)
--- NOTE | 2016-08-26 11:25 | NUR ---
PATIENT HAVE BEEN DISCHARGE BY MD. CRITICAL LAB VALUE HGB [phone], DR. GIBBS NOTIFIED. CALLED MD AGAIN NOW FOR FUTURES ORDERS. PATIENT IS ALERT, NO S/S OF RESPIRATORY DISTRESS. PICTURES WAS TAKEN ON SACRUM AREA. SAFETY AND COMFORT PROVIDED. WILL CONTINUE MONITORING.
[2016-08-26 11:28] VITALS: BP 114/71
[2016-08-26 15:41] VITALS: BP 110/68
--- NOTE | 2016-08-26 15:56 | NUR ---
PATIENT DISCHARGE TO [facility] AFTER TALKING WITH DR. GIBBS. HE SAID SHE IS OK TO BE DISCHARGE. AWARE OF LOW HEMOGLOBIN VALUES. REPORT GIVEN TO EBTH HART. DISCHARGE INSTRUCTIONS WERE SIGNED BY BETH YOUNG AND I DUE TO PATIENT'S MENTAL STATUS AND PHYSICAL CONDITION. IV AND FC WILL BE MAINTAIN. AMBULANCE WILL ARRIVE 1700. SAFETY AND COMFORT PROVIDED BY STAFF. WILL CONTINUE MONITORING.
[2016-08-26] MEDS: HYDROCODONE/APAP 5-325MG TABLET PO PRN (16:20)
--- NOTE | 2016-08-26 18:30 | NUR ---
PATIENT WAS TAKEN BY PARAMEDICS IN STABLE CONDITION. V/S WNL. NO S/S OF DISTRESS WERE NOTED.
== END 2016-08-26 06:30 | DRG 720 ==
LOC: ER 20:59 → TELE 08-22 00:25 → MED 08-24 18:05
PROVIDERS: ADMIT Internal Medicine Nephrology; ATTEND Internal Medicine Nephrology
DX: A41.9 Sepsis, unspecified organism (principal); E43 Unspecified severe protein-calorie malnutrition; G93.40 Encephalopathy, unspecified; L89.153 Pressure ulcer of sacral region, stage 3; F03.90 Unspecified dementia, unspecified severity, without behavioral disturbance, psychotic disturbance, mood disturbance, and anxiety; E86.0 Dehydration; E87.5 Hyperkalemia; E83.42 Hypomagnesemia; N39.0 Urinary tract infection, site not specified; M06.9 Rheumatoid arthritis, unspecified; I12.9 Hypertensive chronic kidney disease with stage 1 through stage 4 chronic kidney disease, or unspecified chronic kidney disease; N18.9 Chronic kidney disease, unspecified; D64.9 Anemia, unspecified; M62.81 Muscle weakness (generalized); Z88.6 Allergy status to analgesic agent; Z68.1 Body mass index [BMI] 19.9 or less, adult; F41.9 Anxiety disorder, unspecified; F32.9 Major depressive disorder, single episode, unspecified; Z79.899 Other long term (current) drug therapy
CPT/HCPCS: 36415; 70030-TC; 71010; 83605; 83735; 84100; 84132; 85025; 85730; 87040; 87086; 93005; 97161; A4663; A9150; J0696; J1815; J2270; J2405; J2543; J3475; J3490; J7030; J7042; J7060; J8999; Q0163